=== PATIENT | male | born 1950 | race Caucasian/White ===

== ENCOUNTER 2016-07-03 13:16 | Inpatient (IN) | payer BC, OTHER ==
[2016-07-03] MEDS ORDERED: Sodium Chloride 0.9% 2.5 ML Syringe FLUSH PRN ×2 (13:25→14:05)
--- NOTE | 2016-07-03 13:37 | EDM.PDOC ---
ED HPI SEIZURE COMPLAINT - General Stated Complaint: UNK Time Seen by Provider: 07/03/16 13:20 Source of Information: Reports: EMS History Limitations: Reports: No limitations - History of Present Illness INITIAL COMMENTS - FREE TEXT/NARRATIVE: History of present illness: [] Patient worked in the [employer] all day 5 days ago, woke up the next morning dizzy and lightheaded. The following day he started having dark bloody stools and has had 2 syncopal episodes in the last 24 hours. Last night he was found on the floor by his and 2 in the morning, unknown how long he can down. Patient has a history of taking high doses of ibuprofen daily for the last 2 months and stopped recently. Review of systems: As per history of present illness and below otherwise all systems reviewed and negative. Past medical history: As per history of present illness and as reviewed below otherwise noncontributory. Surgical history: As per history of present illness and as reviewed below otherwise noncontributory. Social history: No reported history of drug or alcohol abuse. Family history: As per history of present illness and as reviewed below otherwise noncontributory. Physical exam: General: Well developed, well nourished in NAD HEENT: Atraumatic, normocephalic, pupils reactive, negative for conjunctival pallor or scleral icterus, mucous membranes moist, throat clear, neck supple, nontender, trachea midline. Lungs: Clear to auscultation, breath sounds equal bilaterally, chest nontender. Heart: S1S2, regular, negative for clicks, rubs, or JVD. Abdomen: Soft, nondistended, nontender. Negative for masses or hepatosplenomegaly. Negative for costovertebral tenderness. Pelvis: Stable nontender. Genitourinary: Deferred. Rectal: Black guaiac positive stool Extremities: Atraumatic, negative for cords or calf pain. Neurovascular unremarkable. Neuro: Awake, alert, oriented. Cranial nerves II through XII unremarkable. Cerebellum unremarkable. Motor and sensory unremarkable throughout. Exam nonfocal. Diagnostics: [] CBC, chemistry, troponin, chest x-ray- shows no free air Therapeutics: [] IV hydration, transfusion packed RBCs, Protonix bolus and drip Impression: [] GI bleed Plan: [] Admit to ICU, transfuse packed RBCs, admit to hospitalist, Dr. Sylvester Stoll will consult on him for endoscopy. Definitive disposition and diagnosis as appropriate pending reevaluation and review of above. - Related Data Allergies/ADRs: Allergies Allergy/AdvReac Type Severity Reaction Status Date / Time No Known Allergies Allergy Verified 07/03/16 13:37 Home Meds: Home Meds Terazosin HCl [Terazosin] 5 mg PO BEDTIME 08/23/14 [History] Losartan [Cozaar] 25 mg PO DAILY 07/03/16 [History] Unknown Antidepressant 1 tab PO DAILY 07/03/16 [History] Social & Family History - Tobacco Use Smoking Status *Q: Former Smoker - Alcohol Use Days Per Week of Alcohol Use: 0 - Recreational Drug Use Recreational Drug Use: No Drug Use in Last 12 Months: No ED ROS GENERAL - Review of Systems Review Of Systems: See Below (See history of present illness) - Physical Exam Exam: See Below (See history of present illness) Course - Vital Signs Last Recorded V/S: Last Vital Signs Temp 37.1 C 07/03/16 13:16 Pulse 108 H 07/03/16 14:14 Resp 16 07/03/16 14:14 BP 105/56 L 07/03/16 14:14 Pulse Ox 97 07/03/16 14:14 - Orders/Labs/Meds Orders: Active Orders 24 hr Category Date Time Status Chest 1V Frontal [CR] Stat Exams 07/03/16 13:26 Taken CBC WITH AUTO DIFF [HEME] Stat Lab 07/03/16 13:30 Results RED BLOOD CELLS LP [BBK] Stat Lab 07/03/16 13:30 Received TYPE AND SCREEN [BBK] Stat Lab 07/03/16 13:30 Received UA W/MICROSCOPIC [URIN] Stat Lab 07/03/16 13:25 Uncollected Pantoprazole [Protonix IV] 80 mg Med 07/03/16 14:15 Active Sodium Chloride 0.9% [Normal Saline] 100 ml IV Q10H Sodium Chloride 0.9% [Normal Saline] 1,000 ml Med 07/03/16 14:04 Active IV .Bolus Sodium Chloride 0.9% [Saline Flush] Med 07/03/16 13:25 Active 10 ml FLUSH ASDIRECTED PRN Sodium Chloride 0.9% [Saline Flush] Med 07/03/16 14:05 Active 10 ml FLUSH ASDIRECTED PRN Sodium Chloride 0.9% [Saline Flush] Med 07/03/16 13:25 Active 2.5 ml FLUSH ASDIRECTED PRN Sodium Chloride 0.9% [Saline Flush] Med 07/03/16 14:05 Active 2.5 ml FLUSH ASDIRECTED PRN Peripheral IV Insertion Adult [OM.PC] Stat Oth 07/03/16 13:25 Ordered Peripheral IV Insertion Adult [OM.PC] Stat Ot 07/03/16 14:05 Ordered Medication Orders Pantoprazole Sodium 80 mg/ (Sodium Chloride) 100 mls @ 10 mls/hr IV Q10H DILLAN Last Admin: 07/03/16 14:12 Dose: 10 mls/hr Sodium Chloride (Normal Saline) 1,000 mls @ 999 mls/hr IV .Bolus ONE Stop: 07/03/16 15:04 Last Admin: 07/03/16 14:13 Dose: 999 mls/hr Sodium Chloride (Saline Flush) 10 ml FLUSH ASDIRECTED PRN PRN Reason: Keep Vein Open Last Admin: 07/03/16 14:14 Dose: 10 ml Admin: 07/03/16 14:02 Dose: 10 ml Sodium Chloride (Saline Flush) 2.5 ml FLUSH ASDIRECTED PRN PRN Reason: Keep Vein Open Last Admin: 07/03/16 14:02 Dose: 2.5 ml Sodium Chloride (Saline Flush) 10 ml FLUSH ASDIRECTED PRN PRN Reason: Keep Vein Open Sodium Chloride (Saline Flush) 2.5 ml FLUSH ASDIRECTED PRN PRN Reason: Keep Vein Open Last Admin: 07/03/16 14:14 Dose: 2.5 ml Labs: Laboratory Tests 07/03/16 07/03/16 07/03/16 Range/Units 13:30 13:30 13:30 WBC 31.60 H (4.0-11.0) K/uL RBC 1.30 L (4.50-5.90) M/uL Hgb 3.8 L* (13.0-17.0) g/dL Hct 12.0 L (38.0-50.0) % MCV 92.3 (80.0-98.0) fL MCH 29.2 (27.0-32.0) pg MCHC 31.7 (31.0-37.0) g/dL RDW Std Deviation 45.4 (28.0-62.0) fl RDW Coeff of Emily 17 H (11.0-15.0) % Plt Count 238 (150-400) K/uL MPV 8.80 (7.40-12.00) fL Neut % (Auto) [employer] Lymph % (Auto) [employer]ER [place] % (Auto) [employer] TE[employer]ER Eos % (Auto) [employer]ATOR TE[employer]ER Baso % (Auto) [employer] TE[employer]ER Neut # [employer] TE[employer]ER Lymph # [employer]ATOR TE[employer]ER [place] # FL[employer]ULATOR TEACHER Eos # FLIGHT SIMULATOR TEACHER Baso # FL[employer]ULATOR TEACHER Add Manual Diff YES Nucleated RBC % 6.6 /100WBC Nucleated RBCs # 1 K/uL INR (0.86-1.11) APTT (18.6-31.3) SEC Sodium 137 (136-146) mmol/L Potassium 4.0 (3.5-5.1) mmol/L Chloride 106 (98-110) mmol/L Carbon Dioxide 20 L (21-31) mmol/L BUN 47 H (6.0-23.0) mg/dL Creatinine 1.0 (0.6-1.5) mg/dL Est Cr Clr Drug Dosing TNP Estimated GFR (MDRD) > 60.0 ml/min Glucose 203 H (60-110) mg/dL Calcium 8.2 L (8.8-10.8) mg/dL Total Bilirubin 0.2 (0.1-1.5) mg/dL AST 9 (5-40) IU/L ALT 9 (8-54) IU/L Alkaline Phosphatase 32 L (40-150) Troponin I (0.0-0.29) NG/ML Total Protein 4.5 L (6.0-8.0) g/dL Albumin 2.8 L (3.4-4.8) g/dL Globulin 1.7 L (2.0-3.5) g/dL Albumin/Globulin Ratio 1.7 (1.3-2.8) Lipase 39 (7-80) U/L Blood Type O POSITIVE Crossmatch See Detail 07/03/16 07/03/16 Range/Units 13:30 13:30 WBC (4.0-11.0) K/uL RBC (4.50-5.90) M/uL Hgb (13.0-17.0) g/dL Hct (38.0-50.0) % MCV (80.0-98.0) fL MCH (27.0-32.0) pg MCHC (31.0-37.0) g/dL RDW Std Deviation (28.0-62.0) fl RDW Coeff of Emily (11.0-15.0) % Plt Count (150-400) K/uL MPV (7.40-12.00) fL Neut % (Auto) Lymph % (Auto) [place] % (Auto) Eos % (Auto) Baso % (Auto) Neut # Lymph # [place] # Eos # Baso # Add Manual Diff Nucleated RBC % /100WBC Nucleated RBCs # K/uL INR 1.05 (0.86-1.11) APTT 19.8 (18.6-31.3) SEC Sodium (136-146) mmol/L Potassium (3.5-5.1) mmol/L Chloride (98-110) mmol/L Carbon Dioxide (21-31) mmol/L BUN (6.0-23.0) mg/dL Creatinine (0.6-1.5) mg/dL Est Cr Clr Drug Dosing Estimated GFR (MDRD) ml/min Glucose (60-110) mg/dL Calcium (8.8-10.8) mg/dL Total Bilirubin (0.1-1.5) mg/dL AST (5-40) IU/L ALT (8-54) IU/L Alkaline Phosphatase (40-150) Troponin I < 0.10 (0.0-0.29) NG/ML Total Protein (6.0-8.0) g/dL Albumin (3.4-4.8) g/dL Globulin (2.0-3.5) g/dL Albumin/Globulin Ratio (1.3-2.8) Lipase (7-80) U/L Blood Type Crossmatch Meds: Medications Generic Name Dose Route Start Last Admin Trade Name Freq PRN Reason Stop Dose Admin Pantoprazole Sodium 80 mg/ 100 mls @ 10 mls/hr 07/03/16 14:15 07/03/16 14:12 Sodium Chloride IV 10 mls/hr Q10H DILLAN Administration Sodium Chloride 1,000 mls @ 999 mls/hr 07/03/16 14:04 07/03/16 14:13 Normal Saline IV 07/03/16 15:04 999 mls/hr .Bolus ONE Administration Sodium Chloride 10 ml 07/03/16 13:25 07/03/16 14:14 Saline Flush FLUSH 10 ml ASDIRECTED PRN Administration Keep Vein Open Sodium Chloride 2.5 ml 07/03/16 13:25 07/03/16 14:02 Saline Flush FLUSH 2.5 ml ASDIRECTED PRN Administration Keep Vein Open Sodium Chloride 10 ml 07/03/16 14:05 Saline Flush FLUSH ASDIRECTED PRN Keep Vein Open Sodium Chloride 2.5 ml 07/03/16 14:05 07/03/16 14:14 Saline Flush FLUSH 2.5 ml ASDIRECTED PRN Administration Keep Vein Open Discontinued Medications Generic Name Dose Route Start Last Admin Trade Name Freq PRN Reason Stop Dose Admin Pantoprazole Sodium 80 mg/ 100 mls @ 10 mls/hr 07/03/16 14:00 Sodium Chloride IV .Continuous DILLAN Pantoprazole Sodium 80 mg 07/03/16 13:55 07/03/16 14:00 Protonix Iv IVPUSH 07/03/16 13:56 80 mg .BOLUS ONE Administration Departure - Departure Time of Disposition: 14:19 Disposition: Admitted As Inpatient 67 Condition: fair Clinical Impression: GI bleed due to NSAIDs Referrals: PCP,None [Primary Care Provider] - - My Orders Last 24 Hours: My Active Orders 07/03/16 13:25 UA W/MICROSCOPIC [URIN] Stat Sodium Chloride 0.9% [Saline Flush] 10 ml FLUSH ASDIRECTED PRN Sodium Chloride 0.9% [Saline Flush] 2.5 ml FLUSH ASDIRECTED PRN Peripheral IV Insertion Adult [OM.PC] Stat 07/03/16 13:26 Chest 1V Frontal [CR] Stat 07/03/16 13:30 CBC WITH AUTO DIFF [HEME] Stat RED BLOOD CELLS LP [BBK] Stat TYPE AND SCREEN [BBK] Stat 07/03/16 14:04 Sodium Chloride 0.9% [Normal Saline] 1,000 ml IV .Bolus 07/03/16 14:05 Sodium Chloride 0.9% [Saline Flush] 10 ml FLUSH ASDIRECTED PRN Sodium Chloride 0.9% [Saline Flush] 2.5 ml FLUSH ASDIRECTED PRN Peripheral IV Insertion Adult [OM.PC] Stat 07/03/16 14:15 Pantoprazole [Protonix IV] 80 mg Sodium Chloride 0.9% [Normal Saline] 100 ml IV Q10H - Assessment/Plan Last 24 Hours: My Active Orders 07/03/16 13:25 UA W/MICROSCOPIC [URIN] Stat Sodium Chloride 0.9% [Saline Flush] 10 ml FLUSH ASDIRECTED PRN Sodium Chloride 0.9% [Saline Flush] 2.5 ml FLUSH ASDIRECTED PRN Peripheral IV Insertion Adult [OM.PC] Stat 07/03/16 13:26 Chest 1V Frontal [CR] Stat 07/03/16 13:30 CBC WITH AUTO DIFF [HEME] Stat RED BLOOD CELLS LP [BBK] Stat TYPE AND SCREEN [BBK] Stat 07/03/16 14:04 Sodium Chloride 0.9% [Normal Saline] 1,000 ml IV .Bolus 07/03/16 14:05 Sodium Chloride 0.9% [Saline Flush] 10 ml FLUSH ASDIRECTED PRN Sodium Chloride 0.9% [Saline Flush] 2.5 ml FLUSH ASDIRECTED PRN Peripheral IV Insertion Adult [OM.PC] Stat 07/03/16 14:15 Pantoprazole [Protonix IV] 80 mg Sodium Chloride 0.9% [Normal Saline] 100 ml IV Q10H
[2016-07-03] MEDS ORDERED: Pantoprazole 40 MG Vial IVPUSH ONE (13:55)
[2016-07-03] MEDS ORDERED: Pantoprazole 80 MG in Sodium Chloride 0.9% 100 ML IV SCH (14:00)
[2016-07-03] MEDS: Sodium Chloride 0.9% 10 ML Syringe FLUSH PRN ×2 (14:02→14:14)
[2016-07-03] MEDS ORDERED: Sodium Chloride 0.9% 1,000 ML IV ONE (14:04)
[2016-07-03] MEDS ORDERED: Sodium Chloride 0.9% 10 ML Syringe FLUSH PRN (14:05)
[2016-07-03 14:06] LABS: CHLORIDE,CL 106 mmol/L (98-110); SODIUM,NA 137 mmol/L (136-146)
[2016-07-03] MEDS: Pantoprazole 80 MG in Sodium Chloride 0.9% 100 ML IV SCH (14:12)
[2016-07-03] MEDS ORDERED: Ondansetron 4 MG/2 ML SDV IVPUSH PRN (14:43)
--- NOTE | 2016-07-03 14:56 | PCM.HP ---
H&P History of Present Illness - History of Present Illness Initial Comments - Free Text/Narative: 65 yo male with pmh of hypertenison, and BPH who presents with several day history of dizziness and generalized weakness. He reports that last night he had difficulty getting up after sitting on the toliet. He reports a four day history of dark stools but denies any diarrhea, nausea, or abdominal pain. He had been taking 1600mg of ibuprofen a day for his shoulder and hip arthritis. He denies any cough, fevers, or chills. Dark stool was noted in the ED which was heme positive. - Related Data Allergies/Adverse Reactions: Allergies Allergy/AdvReac Type Severity Reaction Status Date / Time No Known Allergies Allergy Verified 07/03/16 13:37 Home Medications: Home Meds Terazosin HCl [Terazosin] 5 mg PO BEDTIME 08/23/14 [History] Losartan [Cozaar] 25 mg PO DAILY 07/03/16 [History] Unknown Antidepressant 1 tab PO DAILY 07/03/16 [History] Past Medical History Cardiovascular History: Reports: Hypertension Genitourinary History: Reports: Renal calculus, Other (see below) Other Genitourinary History: Pt reports "increased frequency of urination" Musculoskeletal History: Reports: Osteoarthritis - Past Surgical History Musculoskeletal Surgical History: Reports: Other (see below) Other Musculoskeletal Surgeries/Procedures:: Knee and Back Surgery Social & Family History - Family History Family Medical History: Noncontributory - Tobacco Use Smoking Status *Q: Former Smoker - Alcohol Use Days Per Week of Alcohol Use: 0 - Recreational Drug Use Recreational Drug Use: No Drug Use in Last 12 Months: No H&P Review of Systems - Review of Systems: Review Of Systems: See Below General: Reports: weakness, fatigue HEENT: Reports: no symptoms Pulmonary: Reports: no symptoms Cardiovascular: Reports: no symptoms Gastrointestinal: Reports: Black stool. Denies: Abdominal pain, Bloody stool, Constipation, Diarrhea, Difficulty swallowing, Distension, Hematemesis, Hematochezia, Nausea, Vomiting Genitourinary: Reports: no symptoms Musculoskeletal: Reports: no symptoms Skin: Reports: no symptoms Psychiatric: Reports: no symptoms Neurological: Reports: no symptoms Hematologic/Lymphatic: Reports: no symptoms Immunologic: Reports: no symptoms Exam - Exam Exam: See Below - Vital Signs Vital Signs: Last Vital Signs Temp 37.1 C 07/03/16 13:16 Pulse 90 07/03/16 14:39 Resp 16 07/03/16 14:39 BP 116/70 07/03/16 14:39 Pulse Ox 98 07/03/16 14:39 Weight: 96.162 kg - Exam General: alert, oriented, other (appears pale) Neck: supple, trachea midline Lungs: Clear to auscultation, Normal respiratory effort Cardiovascular: regular rate, regular rhythm Abdomen: normal bowel sounds, soft Extremities: 3, normal inspection, 10 Skin: warm, dry, intact - Patient Data Result Diagrams: 07/04/16 05:50 07/04/16 05:50 *Q Meaningful Use (ADM) - VTE *Q VTE Criteria *Q: - Stroke *Q Stroke Criteria *Q: - AMI *Q AMI Criteria *Q: Problem List Initiated/Reviewed/Updated: Yes Orders Last 24hrs: Active Orders 24 hr Category Date Time Status CBC W/O DIFF,HEMOGRAM [HEME] Timed Lab 07/03/16 15:00 Ordered CBC WITH AUTO DIFF [HEME] Stat Lab 07/03/16 14:36 Ordered Transfuse PRBC [Transfuse Red Blood Cells] [COMM] Oth 07/03/16 14:34 Ordered Routine Medication Orders Pantoprazole Sodium 80 mg/ (Sodium Chloride) 100 mls @ 10 mls/hr IV Q10H DILLAN Last Admin: 07/03/16 14:12 Dose: 10 mls/hr Sodium Chloride (Normal Saline) 1,000 mls @ 999 mls/hr IV .Bolus ONE Stop: 07/03/16 15:04 Last Admin: 07/03/16 14:13 Dose: 999 mls/hr Sodium Chloride (Saline Flush) 10 ml FLUSH ASDIRECTED PRN PRN Reason: Keep Vein Open Last Admin: 07/03/16 14:14 Dose: 10 ml Admin: 07/03/16 14:02 Dose: 10 ml Sodium Chloride (Saline Flush) 2.5 ml FLUSH ASDIRECTED PRN PRN Reason: Keep Vein Open Last Admin: 07/03/16 14:02 Dose: 2.5 ml Sodium Chloride (Saline Flush) 10 ml FLUSH ASDIRECTED PRN PRN Reason: Keep Vein Open Sodium Chloride (Saline Flush) 2.5 ml FLUSH ASDIRECTED PRN PRN Reason: Keep Vein Open Last Admin: 07/03/16 14:14 Dose: 2.5 ml Assessment/Plan Comment:: 65 yo male admitted for GI bleed with acute blood loss anemia. We will transfer to ICU due to his severe anemia but he is hemodynamiclly stable and does not appear septic. Will transfuse pRBC and treat with IV protonix. Dr. Stoll is consulted and plans on EGD.
[2016-07-03] MEDS: Octreotide 500 MCG in Sodium Chloride 0.9% 495 ML IV SCH (17:56)
--- NOTE | 2016-07-03 21:25 | CONS ---
DATE OF CONSULTATION: 07/03/2016 DATE OF : 1950 PRIMARY CARE PHYSICIAN: None PCP Consult was called. The patient was seen shortly after consult and question is severe anemia. HISTORY OF PRESENT ILLNESS: The patient is a 65-year-old gentleman, very nice patient of Dr. Moses, and is taking a lot of Motrin up to 1600 mg a day for arthritis. Does not feel good for about 4-day history of lethargy and weakness and subsequent check in the emergency room and initial workup blood draw revealed the patient's H and H of 3 and 12. Surgery was then consulted. The patient denied bright red blood per rectum. Denied hematemesis. Denied any abdominal pain. The patient admits to have black tarry stools for over 4 days and also 2 times syncope episode at home. PAST MEDICAL HISTORY: Significant for arthritis. Denied diabetes, MS, CVA. The patient does have hypertension. PAST SURGICAL HISTORY: Hernia repair x2 and also colonoscopy x2, both over 15 years ago. FAMILY HISTORY: Noncontributory. REVIEW OF SYSTEMS: Same as history of present illness. PHYSICAL EXAMINATION: GENERAL: A very pleasant, nice gentleman, except little bit pale, slightly older than stated age, in no acute distress. HEENT: Normocephalic and atraumatic. Sclerae anicteric. LUNGS: Clear to auscultation. HEART: Regular rate and rhythm. ABDOMEN: Soft. Nondistended. No pulsating, tender midline abdominal structure. Absolutely nontender. Bowel sounds in all 4 quadrants. VITAL SIGNS: Blood pressure 100/60 and heart rate 110. BLOOD WORK: H and H are 3 and 12. IMPRESSION: Large amount of NSAID, with syncope episode and with anemic the patient probably is losing blood somewhere. We will start GI bleeding protocol, put into large- bore IV access, transfuse to above 10 and hold all anticoagulation and NSAID. Keep hydration, aggressive resuscitation, and monitor in and out. We will follow the patient with you. The patient will probably benefit from endoscopy study in about 1 to 2 days, so please hold off regular diet, it is okay to give clear liquid diet if the patient so desire and also Protonix drip as you are doing. As always, thank you for the kind referral. LYNNE / MANPREET /[id number]
[2016-07-03] MEDS ORDERED: Sodium Chloride 0.9% 1,000 ML IV SCH (22:00)
[2016-07-04] MEDS: Pantoprazole 80 MG in Sodium Chloride 0.9% 100 ML IV SCH ×3 (00:01→21:41)
[2016-07-04] MEDS: Octreotide 500 MCG in Sodium Chloride 0.9% 495 ML IV SCH (03:12)
[2016-07-04 07:12] LABS: CHLORIDE,CL 110 mmol/L (98-110); SODIUM,NA 141 mmol/L (136-146)
--- NOTE | 2016-07-04 07:49 | PCM.PN ---
- Review of Systems Systems Review Comment:: reports dizziness has improved, no bloody bowel movements, patient denies history of alcohol abuse. - Patient Data Vitals - most recent: Last Vital Signs Temp 37 C 07/04/16 04:00 Pulse 102 H 07/03/16 19:00 Resp 20 07/04/16 07:00 BP 114/68 07/04/16 07:00 Pulse Ox 95 07/04/16 07:00 Weight - most recent: 98.1 kg I&O - last 24 hours: Intake & Output 07/03/16 07/04/16 07/04/16 21:59 06:59 14:59 Intake Total Output Total Balance Lab Results last 24 hrs: Laboratory Results - last 24 hr 07/03/16 07/03/16 07/03/16 Range/Units 14:35 14:56 16:46 WBC 31.38 H (4.0-11.0) K/uL RBC 1.25 L (4.50-5.90) M/uL Hgb 3.7 L* (13.0-17.0) g/dL Hct 11.5 L (38.0-50.0) % MCV 92.0 (80.0-98.0) fL MCH 29.6 (27.0-32.0) pg MCHC 32.2 (31.0-37.0) g/dL RDW Std Deviation 44.8 (28.0-62.0) fl RDW Coeff of Emily 17 H (11.0-15.0) % Plt Count 231 (150-400) K/uL MPV 8.50 (7.40-12.00) fL Neut % (Auto) (48.0-80.0) % Lymph % (Auto) (16.0-40.0) % [place] % (Auto) (0.0-15.0) % Eos % (Auto) (0.0-7.0) % Baso % (Auto) (0.0-1.5) % Neut # (1.4-5.7) K/uL Lymph # (0.6-2.4) K/uL [place] # (0.0-0.8) K/uL Eos # (0.0-0.7) K/uL Baso # (0.0-0.1) K/uL Add Manual Diff YES Neutrophils % (Manual) 80 (48.0-80.0) % Band Neutrophils % 6 % Lymphocytes % (Manual) 12 L (16.0-40.0) % Monocytes % (Manual) 2 (0.0-15.0) % Nucleated RBC % 6.9 /100WBC Absolute Seg Neuts 25.1 Band Neutrophils # 1.9 Lymphocytes # (Manual) 3.8 Monocytes # (Manual) 0.6 Nucleated RBCs 2 % Nucleated RBCs # 1 K/uL Lactate 2.3 H (0.20-2.00) mmol/L Sodium (136-146) mmol/L Potassium (3.5-5.1) mmol/L Chloride (98-110) mmol/L Carbon Dioxide (21-31) mmol/L BUN (6.0-23.0) mg/dL Creatinine (0.6-1.5) mg/dL Est Cr Clr Drug Dosing mL/min Estimated GFR (MDRD) ml/min Glucose (60-110) mg/dL Calcium (8.8-10.8) mg/dL Urine Color YELLOW Urine Appearance CLEAR Urine pH 5.5 (5.0-8.0) Ur Specific [place] 1.015 (1.001-1.035) Urine Protein NEGATIVE (NEGATIVE) mg/dL Urine Glucose (UA) NEGATIVE (NEGATIVE) mg/dL Urine Ketones NEGATIVE (NEGATIVE) mg/dL Urine Occult Blood NEGATIVE (NEGATIVE) Urine Nitrite NEGATIVE (NEGATIVE) Urine Bilirubin NEGATIVE (NEGATIVE) Urine Urobilinogen 0.2 (<2.0) EU/dL Ur Leukocyte Esterase NEGATIVE (NEGATIVE) Urine RBC 0-1 (0-2/HPF) Urine WBC 0-1 (0-5/HPF) Ur Epithelial Cells RARE (NONE-FEW) Urine Bacteria RARE (NEGATIVE) 07/03/16 07/03/16 07/04/16 Range/Units 22:17 22:17 05:50 WBC 24.82 H (4.0-11.0) K/uL RBC 2.56 L (4.50-5.90) M/uL Hgb 7.5 L (13.0-17.0) g/dL Hct 22.6 L (38.0-50.0) % MCV 88.3 (80.0-98.0) fL MCH 29.3 (27.0-32.0) pg MCHC 33.2 (31.0-37.0) g/dL RDW Std Deviation 48.2 (28.0-62.0) fl RDW Coeff of Emily 16 H (11.0-15.0) % Plt Count 177 (150-400) K/uL MPV 8.50 (7.40-12.00) fL Neut % (Auto) (48.0-80.0) % Lymph % (Auto) (16.0-40.0) % [place] % (Auto) (0.0-15.0) % Eos % (Auto) (0.0-7.0) % Baso % (Auto) (0.0-1.5) % Neut # (1.4-5.7) K/uL Lymph # (0.6-2.4) K/uL [place] # (0.0-0.8) K/uL Eos # (0.0-0.7) K/uL Baso # (0.0-0.1) K/uL Add Manual Diff Neutrophils % (Manual) (48.0-80.0) % Band Neutrophils % % Lymphocytes % (Manual) (16.0-40.0) % Monocytes % (Manual) (0.0-15.0) % Nucleated RBC % 6.9 /100WBC Absolute Seg Neuts Band Neutrophils # Lymphocytes # (Manual) Monocytes # (Manual) Nucleated RBCs % Nucleated RBCs # 1 K/uL Lactate 1.0 (0.20-2.00) mmol/L Sodium 141 (136-146) mmol/L Potassium 4.0 (3.5-5.1) mmol/L Chloride 110 (98-110) mmol/L Carbon Dioxide 24 (21-31) mmol/L BUN 30 H (6.0-23.0) mg/dL Creatinine 0.9 (0.6-1.5) mg/dL Est Cr Clr Drug Dosing 96.45 mL/min Estimated GFR (MDRD) > 60.0 ml/min Glucose 110 (60-110) mg/dL Calcium 7.3 L (8.8-10.8) mg/dL Urine Color Urine Appearance Urine pH (5.0-8.0) Ur Specific [place] (1.001-1.035) Urine Protein (NEGATIVE) mg/dL Urine Glucose (UA) (NEGATIVE) mg/dL Urine Ketones (NEGATIVE) mg/dL Urine Occult Blood (NEGATIVE) Urine Nitrite (NEGATIVE) Urine Bilirubin (NEGATIVE) Urine Urobilinogen (<2.0) EU/dL Ur Leukocyte Esterase (NEGATIVE) Urine RBC (0-2/HPF) Urine WBC (0-5/HPF) Ur Epithelial Cells (NONE-FEW) Urine Bacteria (NEGATIVE) 07/04/16 Range/Units 05:50 WBC 20.18 H (4.0-11.0) K/uL RBC 2.82 L (4.50-5.90) M/uL Hgb 8.3 L (13.0-17.0) g/dL Hct 24.5 L (38.0-50.0) % MCV 86.9 (80.0-98.0) fL MCH 29.4 (27.0-32.0) pg MCHC 33.9 (31.0-37.0) g/dL RDW Std Deviation 47.6 (28.0-62.0) fl RDW Coeff of Emily 16 H (11.0-15.0) % Plt Count 175 (150-400) K/uL MPV 8.70 (7.40-12.00) fL Neut % (Auto) 77.7 (48.0-80.0) % Lymph % (Auto) 14.5 L (16.0-40.0) % [place] % (Auto) 7.3 (0.0-15.0) % Eos % (Auto) 0.3 (0.0-7.0) % Baso % (Auto) 0.2 (0.0-1.5) % Neut # 15.7 H (1.4-5.7) K/uL Lymph # 2.9 H (0.6-2.4) K/uL [place] # 1.5 H (0.0-0.8) K/uL Eos # 0.1 (0.0-0.7) K/uL Baso # 0.1 (0.0-0.1) K/uL Add Manual Diff Neutrophils % (Manual) (48.0-80.0) % Band Neutrophils % % Lymphocytes % (Manual) (16.0-40.0) % Monocytes % (Manual) (0.0-15.0) % Nucleated RBC % 5.8 /100WBC Absolute Seg Neuts Band Neutrophils # Lymphocytes # (Manual) Monocytes # (Manual) Nucleated RBCs % Nucleated RBCs # 1 K/uL Lactate (0.20-2.00) mmol/L Sodium (136-146) mmol/L Potassium (3.5-5.1) mmol/L Chloride (98-110) mmol/L Carbon Dioxide (21-31) mmol/L BUN (6.0-23.0) mg/dL Creatinine (0.6-1.5) mg/dL Est Cr Clr Drug Dosing mL/min Estimated GFR (MDRD) ml/min Glucose (60-110) mg/dL Calcium (8.8-10.8) mg/dL Urine Color Urine Appearance Urine pH (5.0-8.0) Ur Specific [place] (1.001-1.035) Urine Protein (NEGATIVE) mg/dL Urine Glucose (UA) (NEGATIVE) mg/dL Urine Ketones (NEGATIVE) mg/dL Urine Occult Blood (NEGATIVE) Urine Nitrite (NEGATIVE) Urine Bilirubin (NEGATIVE) Urine Urobilinogen (<2.0) EU/dL Ur Leukocyte Esterase (NEGATIVE) Urine RBC (0-2/HPF) Urine WBC (0-5/HPF) Ur Epithelial Cells (NONE-FEW) Urine Bacteria (NEGATIVE) Med Orders - Current: Current Medications Pantoprazole Sodium 80 mg/ (Sodium Chloride) 100 mls @ 10 mls/hr IV Q10H DILLAN Last Admin: 07/04/16 00:01 Dose: 10 mls/hr Octreotide Acetate 500 mcg/ (Sodium Chloride) 500 mls @ 50 mls/hr IV Q10H DILLAN PRN Reason: 50 MCG/HR Last Admin: 07/04/16 03:12 Dose: Not Given Sodium Chloride (Normal Saline) 1,000 mls @ 75 mls/hr IV ASDIRECTED DILLAN Last Infusion: 07/04/16 01:50 Dose: 75 mls/hr Ondansetron HCl (Zofran) 4 mg IVPUSH Q4H PRN PRN Reason: Nausea Sodium Chloride (Saline Flush) 10 ml FLUSH ASDIRECTED PRN PRN Reason: Keep Vein Open Last Admin: 07/03/16 14:14 Dose: 10 ml Sodium Chloride (Saline Flush) 2.5 ml FLUSH ASDIRECTED PRN PRN Reason: Keep Vein Open Last Admin: 07/03/16 14:02 Dose: 2.5 ml Sodium Chloride (Saline Flush) 10 ml FLUSH ASDIRECTED PRN PRN Reason: Keep Vein Open Sodium Chloride (Saline Flush) 2.5 ml FLUSH ASDIRECTED PRN PRN Reason: Keep Vein Open Last Admin: 07/03/16 14:14 Dose: 2.5 ml Discontinued Medications Pantoprazole Sodium 80 mg/ (Sodium Chloride) 100 mls @ 10 mls/hr IV .Continuous DILLAN Sodium Chloride (Normal Saline) 1,000 mls @ 999 mls/hr IV .Bolus ONE Stop: 07/03/16 15:04 Last Admin: 07/03/16 14:13 Dose: 999 mls/hr Pantoprazole Sodium (Protonix Iv) 80 mg IVPUSH .BOLUS ONE Stop: 07/03/16 13:56 Last Admin: 07/03/16 14:00 Dose: 80 mg - Exam General: alert, oriented Lungs: Clear to auscultation, Normal respiratory effort Cardiovascular: regular rate, regular rhythm Abdomen: bowel sounds present, soft, no tenderness, no distension Extremities: no edema - Problem List Review Problem List Initiated/Reviewed/Updated: Yes - My Orders Last 24 Hours: My Active Orders 07/03/16 14:43 Patient Status [ADT] Routine Oxygen Therapy [RC] PRN Up With Assistance [RC] ASDIRECTED Vital Signs [RC] Q1H Ondansetron [Zofran] 4 mg IVPUSH Q4H PRN Resuscitation Status Routine 07/03/16 14:45 Intake and Output [RC] Q12H Sequential Compression Device [OM.PC] Per Unit Routine 07/03/16 14:47 Antiembolic Devices [RC] PER UNIT ROUTINE 07/03/16 22:49 Communication Order [RC] ROUTINE 07/03/16 Breakfast Nothing per Oral Now Diet [DIET] 07/04/16 07:46 RED BLOOD CELLS LP [BBK] Routine TYPE AND SCREEN [BBK] Routine Transfuse Red Blood Cells [COMM] Routine 07/04/16 Lunch Clear Liquid Diet [DIET] 07/05/16 05:11 BASIC METABOLIC PANEL,BMP [CHEM] AM 07/06/16 05:11 BASIC METABOLIC PANEL,BMP [CHEM] AM - Plan Plan:: 65 yo male admitted for GI bleed with acute blood loss anemia. Will continue IV protonix. Dr. Stoll has been consulted and wants Hgb goal of 10. will transfuse another unit of pRBC.
[2016-07-04] MEDS ORDERED: Calcium Gluconate 10% 1 GM/10 ML SDV IV ONE (10:15)
--- NOTE | 2016-07-04 10:53 | PCM.SURGPN ---
- General Info Date of Service: 07/04/16 Functional Status: Reports: pain controlled - Review of Systems General: Reports: no symptoms Gastrointestinal: Reports: No symptoms (one black tarry stool in ED; rec'd 5 pack cells and h/h increased fr 3.7 to 8.3) - Patient Data Vitals - most recent: Last Vital Signs Temp 98.8 F 07/04/16 10:26 Pulse 86 07/04/16 10:26 Resp 15 07/04/16 10:26 BP 105/62 07/04/16 10:26 Pulse Ox 95 07/04/16 09:00 Weight - most recent: 212 lb I&O - last 24 hours: Intake & Output 07/03/16 07/04/16 07/04/16 21:59 06:59 14:59 Intake Total 271 Output Total Balance 271 Lab Results last 24 hrs: Laboratory Results - last 24 hr 07/03/16 07/03/16 07/03/16 Range/Units 14:35 14:56 16:46 WBC 31.38 H (4.0-11.0) K/uL RBC 1.25 L (4.50-5.90) M/uL Hgb 3.7 L* (13.0-17.0) g/dL Hct 11.5 L (38.0-50.0) % MCV 92.0 (80.0-98.0) fL MCH 29.6 (27.0-32.0) pg MCHC 32.2 (31.0-37.0) g/dL RDW Std Deviation 44.8 (28.0-62.0) fl RDW Coeff of Emily 17 H (11.0-15.0) % Plt Count 231 (150-400) K/uL MPV 8.50 (7.40-12.00) fL Neut % (Auto) (48.0-80.0) % Lymph % (Auto) (16.0-40.0) % [place] % (Auto) (0.0-15.0) % Eos % (Auto) (0.0-7.0) % Baso % (Auto) (0.0-1.5) % Neut # (1.4-5.7) K/uL Lymph # (0.6-2.4) K/uL [place] # (0.0-0.8) K/uL Eos # (0.0-0.7) K/uL Baso # (0.0-0.1) K/uL Add Manual Diff YES Neutrophils % (Manual) 80 (48.0-80.0) % Band Neutrophils % 6 % Lymphocytes % (Manual) 12 L (16.0-40.0) % Monocytes % (Manual) 2 (0.0-15.0) % Nucleated RBC % 6.9 /100WBC Absolute Seg Neuts 25.1 Band Neutrophils # 1.9 Lymphocytes # (Manual) 3.8 Monocytes # (Manual) 0.6 Nucleated RBCs 2 % Nucleated RBCs # 1 K/uL Lactate 2.3 H (0.20-2.00) mmol/L Sodium (136-146) mmol/L Potassium (3.5-5.1) mmol/L Chloride (98-110) mmol/L Carbon Dioxide (21-31) mmol/L BUN (6.0-23.0) mg/dL Creatinine (0.6-1.5) mg/dL Est Cr Clr Drug Dosing mL/min Estimated GFR (MDRD) ml/min Glucose (60-110) mg/dL Calcium (8.8-10.8) mg/dL Urine Color YELLOW Urine Appearance CLEAR Urine pH 5.5 (5.0-8.0) Ur Specific [place] 1.015 (1.001-1.035) Urine Protein NEGATIVE (NEGATIVE) mg/dL Urine Glucose (UA) NEGATIVE (NEGATIVE) mg/dL Urine Ketones NEGATIVE (NEGATIVE) mg/dL Urine Occult Blood NEGATIVE (NEGATIVE) Urine Nitrite NEGATIVE (NEGATIVE) Urine Bilirubin NEGATIVE (NEGATIVE) Urine Urobilinogen 0.2 (<2.0) EU/dL Ur Leukocyte Esterase NEGATIVE (NEGATIVE) Urine RBC 0-1 (0-2/HPF) Urine WBC 0-1 (0-5/HPF) Ur Epithelial Cells RARE (NONE-FEW) Urine Bacteria RARE (NEGATIVE) 07/03/16 07/03/16 07/04/16 Range/Units 22: 22: 05:50 WBC 24.82 H (4.0-11.0) K/uL RBC 2.56 L (4.50-5.90) M/uL Hgb 7.5 L (13.0-17.0) g/dL Hct 22.6 L (38.0-50.0) % MCV 88.3 (80.0-98.0) fL MCH 29.3 (27.0-32.0) pg MCHC 33.2 (31.0-37.0) g/dL RDW Std Deviation 48.2 (28.0-62.0) fl RDW Coeff of Emily 16 H (11.0-15.0) % Plt Count 177 (150-400) K/uL MPV 8.50 (7.40-12.00) fL Neut % (Auto) (48.0-80.0) % Lymph % (Auto) (16.0-40.0) % [place] % (Auto) (0.0-15.0) % Eos % (Auto) (0.0-7.0) % Baso % (Auto) (0.0-1.5) % Neut # (1.4-5.7) K/uL Lymph # (0.6-2.4) K/uL [place] # (0.0-0.8) K/uL Eos # (0.0-0.7) K/uL Baso # (0.0-0.1) K/uL Add Manual Diff Neutrophils % (Manual) (48.0-80.0) % Band Neutrophils % % Lymphocytes % (Manual) (16.0-40.0) % Monocytes % (Manual) (0.0-15.0) % Nucleated RBC % 6.9 /100WBC Absolute Seg Neuts Band Neutrophils # Lymphocytes # (Manual) Monocytes # (Manual) Nucleated RBCs % Nucleated RBCs # 1 K/uL Lactate 1.0 (0.20-2.00) mmol/L Sodium 141 (136-146) mmol/L Potassium 4.0 (3.5-5.1) mmol/L Chloride 110 (98-110) mmol/L Carbon Dioxide 24 (21-31) mmol/L BUN 30 H (6.0-23.0) mg/dL Creatinine 0.9 (0.6-1.5) mg/dL Est Cr Clr Drug Dosing 96.45 mL/min Estimated GFR (MDRD) > 60.0 ml/min Glucose 110 (60-110) mg/dL Calcium 7.3 L (8.8-10.8) mg/dL Urine Color Urine Appearance Urine pH (5.0-8.0) Ur Specific [place] (1.001-1.035) Urine Protein (NEGATIVE) mg/dL Urine Glucose (UA) (NEGATIVE) mg/dL Urine Ketones (NEGATIVE) mg/dL Urine Occult Blood (NEGATIVE) Urine Nitrite (NEGATIVE) Urine Bilirubin (NEGATIVE) Urine Urobilinogen (<2.0) EU/dL Ur Leukocyte Esterase (NEGATIVE) Urine RBC (0-2/HPF) Urine WBC (0-5/HPF) Ur Epithelial Cells (NONE-FEW) Urine Bacteria (NEGATIVE) 07/04/16 Range/Units 05:50 WBC 20.18 H (4.0-11.0) K/uL RBC 2.82 L (4.50-5.90) M/uL Hgb 8.3 L (13.0-17.0) g/dL Hct 24.5 L (38.0-50.0) % MCV 86.9 (80.0-98.0) fL MCH 29.4 (27.0-32.0) pg MCHC 33.9 (31.0-37.0) g/dL RDW Std Deviation 47.6 (28.0-62.0) fl RDW Coeff of Emily 16 H (11.0-15.0) % Plt Count 175 (150-400) K/uL MPV 8.70 (7.40-12.00) fL Neut % (Auto) 77.7 (48.0-80.0) % Lymph % (Auto) 14.5 L (16.0-40.0) % [place] % (Auto) 7.3 (0.0-15.0) % Eos % (Auto) 0.3 (0.0-7.0) % Baso % (Auto) 0.2 (0.0-1.5) % Neut # 15.7 H (1.4-5.7) K/uL Lymph # 2.9 H (0.6-2.4) K/uL [place] # 1.5 H (0.0-0.8) K/uL Eos # 0.1 (0.0-0.7) K/uL Baso # 0.1 (0.0-0.1) K/uL Add Manual Diff Neutrophils % (Manual) (48.0-80.0) % Band Neutrophils % % Lymphocytes % (Manual) (16.0-40.0) % Monocytes % (Manual) (0.0-15.0) % Nucleated RBC % 5.8 /100WBC Absolute Seg Neuts Band Neutrophils # Lymphocytes # (Manual) Monocytes # (Manual) Nucleated RBCs % Nucleated RBCs # 1 K/uL Lactate (0.20-2.00) mmol/L Sodium (136-146) mmol/L Potassium (3.5-5.1) mmol/L Chloride (98-110) mmol/L Carbon Dioxide (21-31) mmol/L BUN (6.0-23.0) mg/dL Creatinine (0.6-1.5) mg/dL Est Cr Clr Drug Dosing mL/min Estimated GFR (MDRD) ml/min Glucose (60-110) mg/dL Calcium (8.8-10.8) mg/dL Urine Color Urine Appearance Urine pH (5.0-8.0) Ur Specific [place] (1.001-1.035) Urine Protein (NEGATIVE) mg/dL Urine Glucose (UA) (NEGATIVE) mg/dL Urine Ketones (NEGATIVE) mg/dL Urine Occult Blood (NEGATIVE) Urine Nitrite (NEGATIVE) Urine Bilirubin (NEGATIVE) Urine Urobilinogen (<2.0) EU/dL Ur Leukocyte Esterase (NEGATIVE) Urine RBC (0-2/HPF) Urine WBC (0-5/HPF) Ur Epithelial Cells (NONE-FEW) Urine Bacteria (NEGATIVE) Med Orders - Current: Current Medications Pantoprazole Sodium 80 mg/ (Sodium Chloride) 100 mls @ 10 mls/hr IV Q10H DILLAN Last Admin: 07/04/16 00:01 Dose: 10 mls/hr Octreotide Acetate 500 mcg/ (Sodium Chloride) 500 mls @ 50 mls/hr IV Q10H DILLAN PRN Reason: 50 MCG/HR Last Admin: 07/04/16 03:12 Dose: Not Given Sodium Chloride (Normal Saline) 1,000 mls @ 75 mls/hr IV ASDIRECTED DILLAN Last Infusion: 07/04/16 01:50 Dose: 75 mls/hr Ondansetron HCl (Zofran) 4 mg IVPUSH Q4H PRN PRN Reason: Nausea Sodium Chloride (Saline Flush) 10 ml FLUSH ASDIRECTED PRN PRN Reason: Keep Vein Open Last Admin: 07/03/16 14:14 Dose: 10 ml Sodium Chloride (Saline Flush) 2.5 ml FLUSH ASDIRECTED PRN PRN Reason: Keep Vein Open Last Admin: 07/03/16 14:02 Dose: 2.5 ml Sodium Chloride (Saline Flush) 10 ml FLUSH ASDIRECTED PRN PRN Reason: Keep Vein Open Sodium Chloride (Saline Flush) 2.5 ml FLUSH ASDIRECTED PRN PRN Reason: Keep Vein Open Last Admin: 07/03/16 14:14 Dose: 2.5 ml Discontinued Medications Calcium Gluconate (Calcium Gluconate) 1 gm IV ONETIME ONE Stop: 07/04/16 10:16 Pantoprazole Sodium 80 mg/ (Sodium Chloride) 100 mls @ 10 mls/hr IV .Continuous DILLAN Sodium Chloride (Normal Saline) 1,000 mls @ 999 mls/hr IV .Bolus ONE Stop: 07/03/16 15:04 Last Admin: 07/03/16 14:13 Dose: 999 mls/hr Pantoprazole Sodium (Protonix Iv) 80 mg IVPUSH .BOLUS ONE Stop: 07/03/16 13:56 Last Admin: 07/03/16 14:00 Dose: 80 mg - Exam Neck: supple Lungs: Clear to auscultation Cardiovascular: regular rate Abdomen: soft, no tenderness, no distension - Problem List Review Problem List Initiated/Reviewed/Updated: Yes - My Orders Last 24 Hours: Active Orders 24 hr Category Date Time Status Patient Status [ADT] Routine ADT 07/03/16 14:43 Active Antiembolic Devices [RC] PER UNIT ROUTINE Care 07/03/16 14:47 Active Communication Order [RC] ROUTINE Care 07/03/16 22:49 Active Daily Weight [Height and Weight] [RC] DAILY Care 07/04/16 10:41 Active Intake and Output [RC] Q12H Care 07/03/16 14:45 Active Oxygen Therapy [RC] PRN Care 07/03/16 14:43 Active Up With Assistance [RC] ASDIRECTED Care 07/03/16 14:43 Active Vital Signs [RC] Q1H Care 07/03/16 14:43 Active Clear Liquid Diet [DIET] Diet 07/04/16 Lunch Active BASIC METABOLIC PANEL,BMP [CHEM] AM Lab 07/05/16 05:11 Ordered BASIC METABOLIC PANEL,BMP [CHEM] AM Lab 07/06/16 05:11 Ordered CBC W/O DIFF,HEMOGRAM [HEME] Timed Lab 07/04/16 08:54 Ordered CULTURE BLOOD [BC] Stat Lab 07/03/16 16:46 Received CULTURE BLOOD [BC] Stat Lab 07/03/16 16:52 Received Octreotide [SandoSTATIN] 500 mcg Med 07/03/16 17:00 Active Sodium Chloride 0.9% [Normal Saline] 495 ml IV Q10H Ondansetron [Zofran] Med 07/03/16 14:43 Active 4 mg IVPUSH Q4H PRN Sodium Chloride 0.9% [Normal Saline] 1,000 ml Med 07/03/16 22:00 Active IV ASDIRECTED Blood Culture x2 Reflex Set [OM.PC] Stat Oth 07/03/16 16:23 Ordered Sequential Compression Device [OM.PC] Per Unit Routine Oth 07/03/16 14:45 Ordered Transfuse Red Blood Cells [COMM] Routine Oth 07/04/16 07:46 Ordered Resuscitation Status Routine Resus Stat 07/03/16 14:43 Ordered Medication Orders Pantoprazole Sodium 80 mg/ (Sodium Chloride) 100 mls @ 10 mls/hr IV Q10H DILLAN Last Admin: 07/04/16 00:01 Dose: 10 mls/hr Infusion: 07/04/16 00:01 Dose: 10 mls/hr Admin: 07/03/16 14:12 Dose: 10 mls/hr Octreotide Acetate 500 mcg/ (Sodium Chloride) 500 mls @ 50 mls/hr IV Q10H DILLAN PRN Reason: 50 MCG/HR Last Admin: 07/04/16 03:12 Dose: Admin: 07/03/16 17:56 Dose: Sodium Chloride (Normal Saline) 1,000 mls @ 75 mls/hr IV ASDIRECTED DILLAN Last Infusion: 07/04/16 01:50 Dose: 75 mls/hr Infusion: 07/03/16 23:58 Dose: 0 mls/hr Admin: 07/03/16 22:05 Dose: 75 mls/hr Ondansetron HCl (Zofran) 4 mg IVPUSH Q4H PRN PRN Reason: Nausea Sodium Chloride (Saline Flush) 10 ml FLUSH ASDIRECTED PRN PRN Reason: Keep Vein Open Last Admin: 07/03/16 14:14 Dose: 10 ml Admin: 07/03/16 14:02 Dose: 10 ml Sodium Chloride (Saline Flush) 2.5 ml FLUSH ASDIRECTED PRN PRN Reason: Keep Vein Open Last Admin: 07/03/16 14:02 Dose: 2.5 ml Sodium Chloride (Saline Flush) 10 ml FLUSH ASDIRECTED PRN PRN Reason: Keep Vein Open Sodium Chloride (Saline Flush) 2.5 ml FLUSH ASDIRECTED PRN PRN Reason: Keep Vein Open Last Admin: 07/03/16 14:14 Dose: 2.5 ml - Assessment Assessment (Free Text/Narrative):: gib and getting aggressive resuscitation; receieved 5 PRBC and h/h going appropriately to 8.3, no signs or symptoms of active bleeding; continue to denied any abd pain whatsoever; pt gave more clear details about med use; he was taking 1600 mg advil everyday till 2 wks ago and then stopped because of ran out of meds; so he is off advil X 2 wks; he denied any abd pain in the last 6 mos; he did lose 10 lb in 2 mos though; his appetite is good; with everything considered; he would be benefitial to have egd done after resuscitation X 24 hrs; maybe colonosscopy as outpatient; his last colonoscopy was 15 yrs ago per pt; he never have egd done in the past; there is no endoscopy planned at the present stage; - Plan Plan (Free Text/Narrative):: gib and getting aggressive resuscitation; receieved 5 PRBC and h/h going appropriately to 8.3, no signs or symptoms of active bleeding; continue to denied any abd pain whatsoever; pt gave more clear details about med use; he was taking 1600 mg advil everyday till 2 wks ago and then stopped because of ran out of meds; so he is off advil X 2 wks; he denied any abd pain in the last 6 mos; he did lose 10 lb in 2 mos though; his appetite is good; with everything considered; he would be benefitial to have egd done after resuscitation X 24 hrs; maybe colonosscopy as outpatient; his last colonoscopy was 15 yrs ago per pt; he never have egd done in the past; there is no endoscopy planned at the present stage;
[2016-07-04 22:45] LABS: CHLORIDE,CL 108 mmol/L (98-110); SODIUM,NA 139 mmol/L (136-146)
[2016-07-04] MEDS ORDERED: Magnesium Sulfate/Water 2 GM in Premix Bag 1 BAG IV ONE (23:52)
[2016-07-05] MEDS ORDERED: Potassium Phosphates 3 mMole/ML 15 ML SDV IV ONE
[2016-07-05] MEDS ORDERED: Potassium Phosphates 20 MMOLE in Sodium Chloride 0.9% 500 ML IV ONE (00:15)
[2016-07-05] MEDS ORDERED: Calcium Gluconate 10% 1 GM/10 ML SDV IV ONE (00:35)
[2016-07-05] MEDS ORDERED: NS + KCl 20mEq/L 500 ML IV ONE (00:55)
[2016-07-05] MEDS ORDERED: KCL IV ONE (01:00)
[2016-07-05] MEDS ORDERED: NS IV ONE (01:00)
[2016-07-05] MEDS: Pantoprazole 80 MG in Sodium Chloride 0.9% 100 ML IV SCH ×2 (05:21→15:18)
[2016-07-05 06:50] LABS: CHLORIDE,CL 110 mmol/L (98-110); SODIUM,NA 139 mmol/L (136-146)
[2016-07-05] MEDS ORDERED: Bisacodyl 5 MG Tab PO ONE ×2 (10:32→13:00)
--- NOTE | 2016-07-05 10:33 | PCM.PREANE ---
Preanesthetic Assessment - ANESTHESIA/TRANSFUSION/FAMILY HX Anesthesia/Transfusion History: Prior Anesthesia, Prior Transfusion Family History of Anesthesia Reaction: No Other Intubation History Comment: no known problems - REVIEW OF SYSTEMS Constitutional: Reports: no symptoms [employer]: Reports: no symptoms Respiratory: Reports: no symptoms Cardiovascular: Reports: no symptoms GI: Reports: no symptoms - PHYSICAL ASSESSMENT O2 Sat by Pulse Oximetry: 93 RR: 24 Temp: 36.5 C Vital Signs: Last Vital Signs Temp 36.5 C 07/05/16 07:31 Pulse 86 07/04/16 10:26 Resp 24 H 07/05/16 08:00 BP 133/64 07/05/16 08:00 Pulse Ox 93 L 07/05/16 08:00 Height: 1.88 m Weight: 100.1 kg ASA Class: 3 Mental Status: alert & oriented x3 Dentition: Reports: missing tooth/teeth ROM/Head Extension: full Respiratory Status: lungs clear to auscultation bilaterally Cardiovascular Status: regular rate & rhythm, normal S1, S2, no murmur - LAB Values: Laboratory Last Values WBC 15.85 K/uL (4.0-11.0) H 07/05/16 02:30 RBC 2.87 M/uL (4.50-5.90) L 07/05/16 02:30 Hgb 10.1 g/dL (13.0-17.0) L 07/05/16 08:03 Hct 30.3 % (38.0-50.0) L 07/05/16 08:03 MCV 89.9 fL (80.0-98.0) 07/05/16 02:30 MCH 30.0 pg (27.0-32.0) 07/05/16 02:30 MCHC 33.3 g/dL (31.0-37.0) 07/05/16 02:30 RDW Std Deviation 46.3 fl (28.0-62.0) 07/05/16 02:30 RDW Coeff of Emily 17 % (11.0-15.0) H 07/05/16 02:30 Plt Count 175 K/uL (150-400) 07/05/16 02:30 MPV 8.30 fL (7.40-12.00) 07/05/16 02:30 Neut % (Auto) 79.2 % (48.0-80.0) 07/05/16 02:30 Lymph % (Auto) 12.0 % (16.0-40.0) L 07/05/16 02:30 [place] % (Auto) 7.4 % (0.0-15.0) 07/05/16 02:30 Eos % (Auto) 1.3 % (0.0-7.0) 07/05/16 02:30 Baso % (Auto) 0.1 % (0.0-1.5) 07/05/16 02:30 Neut # 12.6 K/uL (1.4-5.7) H 07/05/16 02:30 Lymph # 1.9 K/uL (0.6-2.4) 07/05/16 02:30 [place] # 1.2 K/uL (0.0-0.8) H 07/05/16 02:30 Eos # 0.2 K/uL (0.0-0.7) 07/05/16 02:30 Baso # 0.0 K/uL (0.0-0.1) 07/05/16 02:30 Add Manual Diff YES 07/03/16 14:56 Neutrophils % (Manual) 80 % (48.0-80.0) 07/03/16 14:56 Band Neutrophils % 6 % 07/03/16 14:56 Lymphocytes % (Manual) 12 % (16.0-40.0) L 07/03/16 14:56 Monocytes % (Manual) 2 % (0.0-15.0) 07/03/16 14:56 Nucleated RBC % 4.7 /100WBC 07/04/16 11:03 Absolute Seg Neuts 25.1 07/03/16 14:56 Band Neutrophils # 1.9 07/03/16 14:56 Lymphocytes # (Manual) 3.8 07/03/16 14:56 Monocytes # (Manual) 0.6 07/03/16 14:56 Nucleated RBCs 2 % 07/03/16 14:56 Nucleated RBCs # 0 K/uL 07/04/16 11:03 INR 1.05 (0.86-1.11) 07/03/16 13:30 APTT 19.8 SEC (18.6-31.3) 07/03/16 13:30 Lactate 1.0 mmol/L (0.20-2.00) 07/03/16 22:17 Sodium 139 mmol/L (136-146) 07/05/16 06:10 Potassium 4.0 mmol/L (3.5-5.1) 07/05/16 06:10 Chloride 110 mmol/L (98-110) 07/05/16 06:10 Carbon Dioxide 23 mmol/L (21-31) 07/05/16 06:10 BUN 15 mg/dL (6.0-23.0) 07/05/16 06:10 Creatinine 0.8 mg/dL (0.6-1.5) 07/05/16 06:10 Est Cr Clr Drug Dosing 108.50 mL/min 07/05/16 06:10 Estimated GFR (MDRD) > 60.0 ml/min 07/05/16 06:10 Glucose 94 mg/dL (60-110) 07/05/16 06:10 Calcium 7.0 mg/dL (8.8-10.8) L 07/05/16 06:10 Phosphorus 3.4 mg/dL (2.4-4.7) 07/05/16 06:10 Magnesium 1.9 mEq/L (1.5-2.3) 07/05/16 06:10 Total Bilirubin 0.2 mg/dL (0.1-1.5) 07/03/16 13:30 AST 9 IU/L (5-40) 07/03/16 13:30 ALT 9 IU/L (8-54) 07/03/16 13:30 Alkaline Phosphatase 32 (40-150) L 07/03/16 13:30 Troponin I < 0.10 NG/ML (0.0-0.29) 07/03/16 13:30 Total Protein 4.5 g/dL (6.0-8.0) L 07/03/16 13:30 Albumin 2.8 g/dL (3.4-4.8) L 07/03/16 13:30 Globulin 1.7 g/dL (2.0-3.5) L 07/03/16 13:30 Albumin/Globulin Ratio 1.7 (1.3-2.8) 07/03/16 13:30 Lipase 39 U/L (7-80) 07/03/16 13:30 Urine Color YELLOW 07/03/16 14:35 Urine Appearance CLEAR 07/03/16 14:35 Urine pH 5.5 (5.0-8.0) 07/03/16 14:35 Ur Specific [place] 1.015 (1.001-1.035) 07/03/16 14:35 Urine Protein NEGATIVE mg/dL (NEGATIVE) 07/03/16 14:35 Urine Glucose (UA) NEGATIVE mg/dL (NEGATIVE) 07/03/16 14:35 Urine Ketones NEGATIVE mg/dL (NEGATIVE) 07/03/16 14:35 Urine Occult Blood NEGATIVE (NEGATIVE) 07/03/16 14:35 Urine Nitrite NEGATIVE (NEGATIVE) 07/03/16 14:35 Urine Bilirubin NEGATIVE (NEGATIVE) 07/03/16 14:35 Urine Urobilinogen 0.2 EU/dL (<2.0) 07/03/16 14:35 Ur Leukocyte Esterase NEGATIVE (NEGATIVE) 07/03/16 14:35 Urine RBC 0-1 (0-2/HPF) 07/03/16 14:35 Urine WBC 0-1 (0-5/HPF) 07/03/16 14:35 Ur Epithelial Cells RARE (NONE-FEW) 07/03/16 14:35 Urine Bacteria RARE (NEGATIVE) 07/03/16 14:35 Blood Type O POSITIVE 07/03/16 13:30 Antibody Screen NEGATIVE 07/03/16 13:30 Crossmatch See Detail 07/03/16 13:30 - ALLERGIES Allergies/Adverse Reactions: Allergies Allergy/AdvReac Type Severity Reaction Status Date / Time No Known Allergies Allergy Verified 07/03/16 13:37 - BLOOD Blood Available: Yes - ANESTHESIA PLAN Anesthesia Type Planned: MAC - ACKNOWLEDGEMENTS Pt an appropriate candidate for the planned anesthesia: Yes Alternatives and risks of anesthesia discussed w pt/guardian: Yes Pt/Guardian understands and agree with anesthesia plan: Yes PreAnesthesia Questionnaire Cardiovascular History: Reports: Hypertension Gastrointestinal History: Reports: GI bleed (Hb of 3.8 on admission, now 9.2 after 6-7 units of pRBCs,) Other Gastrointestinal History: on protonix and octreotide gtts Genitourinary History: Reports: Renal calculus, Other (see below) Other Genitourinary History: Pt reports "increased frequency of urination" Musculoskeletal History: Reports: Osteoarthritis - Past Surgical History Male Surgical History: Reports: Renal Calculus Neurological Surgical History: Reports: Laminectomy, Lumbar spine Musculoskeletal Surgical History: Reports: Arthroscopic knee, Ganglion cyst, Other (see below) Other Musculoskeletal Surgeries/Procedures:: Knee and Back Surgery - SUBSTANCE USE Smoking Status *Q: Former Smoker Days Per Week of Alcohol Use: 0 Recreational Drug Use History: No - HOME MEDS Home Medications: Home Meds Terazosin HCl [Terazosin] 5 mg PO BEDTIME 08/23/14 [History] Losartan [Cozaar] 25 mg PO DAILY 07/03/16 [History] Unknown Antidepressant 1 tab PO DAILY 07/03/16 [History] - CURRENT (IN HOUSE) MEDS Current Meds: Current Medications Pantoprazole Sodium 80 mg/ (Sodium Chloride) 100 mls @ 10 mls/hr IV Q10H DILLAN Last Admin: 07/05/16 05:21 Dose: 10 mls/hr Lactated Ringer's (Ringers, Lactated) 1,000 mls @ 125 mls/hr IV ASDIRECTED DILLAN Ondansetron HCl (Zofran) 4 mg IVPUSH Q4H PRN PRN Reason: Nausea Sodium Chloride (Saline Flush) 10 ml FLUSH ASDIRECTED PRN PRN Reason: Keep Vein Open Last Admin: 07/03/16 14:14 Dose: 10 ml Sodium Chloride (Saline Flush) 2.5 ml FLUSH ASDIRECTED PRN PRN Reason: Keep Vein Open Last Admin: 07/03/16 14:02 Dose: 2.5 ml Sodium Chloride (Saline Flush) 10 ml FLUSH ASDIRECTED PRN PRN Reason: Keep Vein Open Sodium Chloride (Saline Flush) 2.5 ml FLUSH ASDIRECTED PRN PRN Reason: Keep Vein Open Last Admin: 07/03/16 14:14 Dose: 2.5 ml Discontinued Medications Calcium Gluconate (Calcium Gluconate) 1 gm IV ONETIME ONE Stop: 07/04/16 10:16 Last Admin: 07/04/16 10:45 Dose: 1 gm Calcium Gluconate (Calcium Gluconate) 1 gm IV ONETIME ONE Stop: 07/05/16 00:36 Last Admin: 07/05/16 00:54 Dose: 1 gm Pantoprazole Sodium 80 mg/ (Sodium Chloride) 100 mls @ 10 mls/hr IV .Continuous DILLAN Sodium Chloride (Normal Saline) 1,000 mls @ 999 mls/hr IV .Bolus ONE Stop: 07/03/16 15:04 Last Admin: 07/03/16 14:13 Dose: 999 mls/hr Octreotide Acetate 500 mcg/ (Sodium Chloride) 500 mls @ 50 mls/hr IV Q10H DILLAN PRN Reason: 50 MCG/HR Last Admin: 07/04/16 03:12 Dose: Not Given Sodium Chloride (Normal Saline) 1,000 mls @ 75 mls/hr IV ASDIRECTED DILLAN Last Infusion: 07/04/16 01:50 Dose: 75 mls/hr Magnesium Sulfate 2 gm/ Premix 50 mls @ 50 mls/hr IV ONETIME ONE Stop: 07/05/16 00:51 Last Admin: 07/05/16 00:11 Dose: 50 mls/hr Potassium Phosphate 20 mmole/ (Sodium Chloride) 506.6667 mls @ 126.667 mls/hr IV NOW ONE Stop: 07/05/16 04:14 Last Admin: 07/05/16 00:52 Dose: 126.667 mls/hr Potassium Chloride/Sodium Chloride (Normal Saline With 20 Meq Kcl) 500 mls @ 250 mls/hr IV ONETIME ONE Stop: 07/05/16 02:54 Last Admin: 07/05/16 01:22 Dose: 250 mls/hr Pantoprazole Sodium (Protonix Iv) 80 mg IVPUSH .BOLUS ONE Stop: 07/03/16 13:56 Last Admin: 07/03/16 14:00 Dose: 80 mg Potassium Phosphate (Potassium Phosphates) 20 mmole IV ONETIME ONE Stop: 07/05/16 00:01
--- NOTE | 2016-07-05 10:46 | PCM.PN ---
- General Info Date of Service: 07/05/16 - Patient Data Vitals - most recent: Last Vital Signs Temp 36.5 C 07/05/16 10:34 Pulse 86 07/04/16 10:26 Resp 24 H 07/05/16 10:34 BP 133/64 07/05/16 08:00 Pulse Ox 93 L 07/05/16 10:34 Weight - most recent: 100.1 kg I&O - last 24 hours: Intake & Output 07/04/16 07/05/16 07/05/16 22:59 06:59 14:59 Intake Total 2600 1796 Output Total 1200 640 Balance 1400 1156 Lab Results last 24 hrs: Laboratory Results - last 24 hr 07/04/16 07/04/16 07/04/16 Range/Units 11:03 20:00 22:03 WBC 18.56 H (4.0-11.0) K/uL RBC 3.11 L (4.50-5.90) M/uL Hgb 9.2 L 9.4 L (13.0-17.0) g/dL Hct 26.9 L 27.6 L (38.0-50.0) % MCV 86.5 (80.0-98.0) fL MCH 29.6 (27.0-32.0) pg MCHC 34.2 (31.0-37.0) g/dL RDW Std Deviation 47.6 (28.0-62.0) fl RDW Coeff of Emily 17 H (11.0-15.0) % Plt Count 165 (150-400) K/uL MPV 8.60 (7.40-12.00) fL Neut % (Auto) (48.0-80.0) % Lymph % (Auto) (16.0-40.0) % [place] % (Auto) (0.0-15.0) % Eos % (Auto) (0.0-7.0) % Baso % (Auto) (0.0-1.5) % Neut # (1.4-5.7) K/uL Lymph # (0.6-2.4) K/uL [place] # (0.0-0.8) K/uL Eos # (0.0-0.7) K/uL Baso # (0.0-0.1) K/uL Nucleated RBC % 4.7 /100WBC Nucleated RBCs # 0 K/uL Sodium 139 (136-146) mmol/L Potassium 3.5 (3.5-5.1) mmol/L Chloride 108 (98-110) mmol/L Carbon Dioxide 25 (21-31) mmol/L BUN 18 (6.0-23.0) mg/dL Creatinine 0.8 (0.6-1.5) mg/dL Est Cr Clr Drug Dosing 108.50 mL/min Estimated GFR (MDRD) > 60.0 ml/min Glucose 119 H (60-110) mg/dL Calcium 7.2 L (8.8-10.8) mg/dL Phosphorus (2.4-4.7) mg/dL Magnesium 1.3 L (1.5-2.3) mEq/L 07/04/16 07/05/16 07/05/16 Range/Units 22:03 02:30 06:10 WBC 15.85 H (4.0-11.0) K/uL RBC 2.87 L (4.50-5.90) M/uL Hgb 8.6 L (13.0-17.0) g/dL Hct 25.8 L (38.0-50.0) % MCV 89.9 (80.0-98.0) fL MCH 30.0 (27.0-32.0) pg MCHC 33.3 (31.0-37.0) g/dL RDW Std Deviation 46.3 (28.0-62.0) fl RDW Coeff of Emily 17 H (11.0-15.0) % Plt Count 175 (150-400) K/uL MPV 8.30 (7.40-12.00) fL Neut % (Auto) 79.2 (48.0-80.0) % Lymph % (Auto) 12.0 L (16.0-40.0) % [place] % (Auto) 7.4 (0.0-15.0) % Eos % (Auto) 1.3 (0.0-7.0) % Baso % (Auto) 0.1 (0.0-1.5) % Neut # 12.6 H (1.4-5.7) K/uL Lymph # 1.9 (0.6-2.4) K/uL [place] # 1.2 H (0.0-0.8) K/uL Eos # 0.2 (0.0-0.7) K/uL Baso # 0.0 (0.0-0.1) K/uL Nucleated RBC % /100WBC Nucleated RBCs # K/uL Sodium (136-146) mmol/L Potassium (3.5-5.1) mmol/L Chloride (98-110) mmol/L Carbon Dioxide (21-31) mmol/L BUN (6.0-23.0) mg/dL Creatinine (0.6-1.5) mg/dL Est Cr Clr Drug Dosing mL/min Estimated GFR (MDRD) ml/min Glucose (60-110) mg/dL Calcium 7.1 L 7.2 L (8.8-10.8) mg/dL Phosphorus 2.2 L 3.4 (2.4-4.7) mg/dL Magnesium 1.9 (1.5-2.3) mEq/L 07/05/16 07/05/16 Range/Units 06:10 08:03 WBC (4.0-11.0) K/uL RBC (4.50-5.90) M/uL Hgb 10.1 L (13.0-17.0) g/dL Hct 30.3 L (38.0-50.0) % MCV (80.0-98.0) fL MCH (27.0-32.0) pg MCHC (31.0-37.0) g/dL RDW Std Deviation (28.0-62.0) fl RDW Coeff of Emily (11.0-15.0) % Plt Count (150-400) K/uL MPV (7.40-12.00) fL Neut % (Auto) (48.0-80.0) % Lymph % (Auto) (16.0-40.0) % [place] % (Auto) (0.0-15.0) % Eos % (Auto) (0.0-7.0) % Baso % (Auto) (0.0-1.5) % Neut # (1.4-5.7) K/uL Lymph # (0.6-2.4) K/uL [place] # (0.0-0.8) K/uL Eos # (0.0-0.7) K/uL Baso # (0.0-0.1) K/uL Nucleated RBC % /100WBC Nucleated RBCs # K/uL Sodium 139 (136-146) mmol/L Potassium 4.0 (3.5-5.1) mmol/L Chloride 110 (98-110) mmol/L Carbon Dioxide 23 (21-31) mmol/L BUN 15 (6.0-23.0) mg/dL Creatinine 0.8 (0.6-1.5) mg/dL Est Cr Clr Drug Dosing 108.50 mL/min Estimated GFR (MDRD) > 60.0 ml/min Glucose 94 (60-110) mg/dL Calcium 7.0 L (8.8-10.8) mg/dL Phosphorus (2.4-4.7) mg/dL Magnesium (1.5-2.3) mEq/L [place] Results last 24 hrs: Microbiology 07/03/16 16:52 Aerobic Blood Culture - Preliminary Blood - Venous - Lab Draw NO GROWTH AFTER 1 DAY Anaerobic Blood Culture - Preliminary NO GROWTH AFTER 1 DAY 07/03/16 16:46 Aerobic Blood Culture - Preliminary Blood - Venous NO GROWTH AFTER 1 DAY Anaerobic Blood Culture - Preliminary NO GROWTH AFTER 1 DAY Med Orders - Current: Current Medications Bisacodyl (Dulcolax) 20 mg PO ONETIME ONE Stop: 07/05/16 13:01 Pantoprazole Sodium 80 mg/ (Sodium Chloride) 100 mls @ 10 mls/hr IV Q10H DILLAN Last Admin: 07/05/16 05:21 Dose: 10 mls/hr Lactated Ringer's (Ringers, Lactated) 1,000 mls @ 125 mls/hr IV ASDIRECTED DILLAN Ondansetron HCl (Zofran) 4 mg IVPUSH Q4H PRN PRN Reason: Nausea Polyethylene Glycol (Miralax) 119 gm PO ONETIME ONE Stop: 07/05/16 15:01 Polyethylene Glycol (Miralax) 119 gm PO ONETIME ONE Stop: 07/05/16 19:01 Sodium Chloride (Saline Flush) 10 ml FLUSH ASDIRECTED PRN PRN Reason: Keep Vein Open Last Admin: 07/03/16 14:14 Dose: 10 ml Sodium Chloride (Saline Flush) 2.5 ml FLUSH ASDIRECTED PRN PRN Reason: Keep Vein Open Last Admin: 07/03/16 14:02 Dose: 2.5 ml Sodium Chloride (Saline Flush) 10 ml FLUSH ASDIRECTED PRN PRN Reason: Keep Vein Open Sodium Chloride (Saline Flush) 2.5 ml FLUSH ASDIRECTED PRN PRN Reason: Keep Vein Open Last Admin: 07/03/16 14:14 Dose: 2.5 ml Discontinued Medications Bisacodyl (Dulcolax) 20 mg PO ONETIME ONE Stop: 07/05/16 10:33 Last Admin: 07/05/16 10:35 Dose: Not Given Calcium Gluconate (Calcium Gluconate) 1 gm IV ONETIME ONE Stop: 07/04/16 10:16 Last Admin: 07/04/16 10:45 Dose: 1 gm Calcium Gluconate (Calcium Gluconate) 1 gm IV ONETIME ONE Stop: 07/05/16 00:36 Last Admin: 07/05/16 00:54 Dose: 1 gm Pantoprazole Sodium 80 mg/ (Sodium Chloride) 100 mls @ 10 mls/hr IV .Continuous DILLAN Sodium Chloride (Normal Saline) 1,000 mls @ 999 mls/hr IV .Bolus ONE Stop: 07/03/16 15:04 Last Admin: 07/03/16 14:13 Dose: 999 mls/hr Octreotide Acetate 500 mcg/ (Sodium Chloride) 500 mls @ 50 mls/hr IV Q10H DILLAN PRN Reason: 50 MCG/HR Last Admin: 07/04/16 03:12 Dose: Not Given Sodium Chloride (Normal Saline) 1,000 mls @ 75 mls/hr IV ASDIRECTED DILLAN Last Infusion: 07/04/16 01:50 Dose: 75 mls/hr Magnesium Sulfate 2 gm/ Premix 50 mls @ 50 mls/hr IV ONETIME ONE Stop: 07/05/16 00:51 Last Admin: 07/05/16 00:11 Dose: 50 mls/hr Potassium Phosphate 20 mmole/ (Sodium Chloride) 506.6667 mls @ 126.667 mls/hr IV NOW ONE Stop: 07/05/16 04:14 Last Admin: 07/05/16 00:52 Dose: 126.667 mls/hr Potassium Chloride/Sodium Chloride (Normal Saline With 20 Meq Kcl) 500 mls @ 250 mls/hr IV ONETIME ONE Stop: 07/05/16 02:54 Last Admin: 07/05/16 01:22 Dose: 250 mls/hr Pantoprazole Sodium (Protonix Iv) 80 mg IVPUSH .BOLUS ONE Stop: 07/03/16 13:56 Last Admin: 07/03/16 14:00 Dose: 80 mg Potassium Phosphate (Potassium Phosphates) 20 mmole IV ONETIME ONE Stop: 07/05/16 00:01 - Exam General: alert, oriented Lungs: Clear to auscultation, Normal respiratory effort Cardiovascular: regular rate, regular rhythm Abdomen: bowel sounds present, soft, no tenderness, no distension Extremities: no edema Skin: warm, dry, intact Neurological: no new focal deficit - Problem List Review Problem List Initiated/Reviewed/Updated: Yes - My Orders Last 24 Hours: My Active Orders 07/04/16 Lunch Clear Liquid Diet [DIET] 07/05/16 05:11 CBC WITH AUTO DIFF [HEME] AM 07/05/16 09:44 Transfer Patient (Change bed) [ADT] Routine 07/05/16 17:00 HGB [HEMOGLOBIN] [HEME] Routine 07/06/16 05:11 BASIC METABOLIC PANEL,BMP [CHEM] AM CBC WITH AUTO DIFF [HEME] AM 07/07/16 05:11 CBC WITH AUTO DIFF [HEME] AM - Plan Plan:: 65 yo male admitted for GI bleed with acute blood loss anemia. Transfused 7 units of pRBC. Hgb 10.1 today. Will continue IV protonix Dr. Stoll is consulted and possible EGD tomorrow.
--- NOTE | 2016-07-05 11:06 | PCM.SURGPN ---
- General Info Date of Service: 07/05/16 - Review of Systems General: Reports: no symptoms (had BM, still black, denied abd pain; h/h = 10.1 after 7 RBC txf) - Patient Data Vitals - most recent: Last Vital Signs Temp 97.7 F 07/05/16 10:34 Pulse 86 07/04/16 10:26 Resp 24 H 07/05/16 10:34 BP 133/64 07/05/16 08:00 Pulse Ox 93 L 07/05/16 10:34 Weight - most recent: 220 lb 10.923 oz I&O - last 24 hours: Intake & Output 07/04/16 07/05/16 07/05/16 22:59 06:59 14:59 Intake Total 2600 1796 Output Total 1200 640 Balance 1400 1156 Lab Results last 24 hrs: Laboratory Results - last 24 hr 07/04/16 07/04/16 07/04/16 Range/Units 11:03 20:00 22:03 WBC 18.56 H (4.0-11.0) K/uL RBC 3.11 L (4.50-5.90) M/uL Hgb 9.2 L 9.4 L (13.0-17.0) g/dL Hct 26.9 L 27.6 L (38.0-50.0) % MCV 86.5 (80.0-98.0) fL MCH 29.6 (27.0-32.0) pg MCHC 34.2 (31.0-37.0) g/dL RDW Std Deviation 47.6 (28.0-62.0) fl RDW Coeff of Emily 17 H (11.0-15.0) % Plt Count 165 (150-400) K/uL MPV 8.60 (7.40-12.00) fL Neut % (Auto) (48.0-80.0) % Lymph % (Auto) (16.0-40.0) % Bullock % (Auto) (0.0-15.0) % Eos % (Auto) (0.0-7.0) % Baso % (Auto) (0.0-1.5) % Neut # (1.4-5.7) K/uL Lymph # (0.6-2.4) K/uL Bullock # (0.0-0.8) K/uL Eos # (0.0-0.7) K/uL Baso # (0.0-0.1) K/uL Nucleated RBC % 4.7 /100WBC Nucleated RBCs # 0 K/uL Sodium 139 (136-146) mmol/L Potassium 3.5 (3.5-5.1) mmol/L Chloride 108 (98-110) mmol/L Carbon Dioxide 25 (21-31) mmol/L BUN 18 (6.0-23.0) mg/dL Creatinine 0.8 (0.6-1.5) mg/dL Est Cr Clr Drug Dosing 108.50 mL/min Estimated GFR (MDRD) > 60.0 ml/min Glucose 119 H (60-110) mg/dL Calcium 7.2 L (8.8-10.8) mg/dL Phosphorus (2.4-4.7) mg/dL Magnesium 1.3 L (1.5-2.3) mEq/L 07/04/16 07/05/16 07/05/16 Range/Units 22:03 02:30 06:10 WBC 15.85 H (4.0-11.0) K/uL RBC 2.87 L (4.50-5.90) M/uL Hgb 8.6 L (13.0-17.0) g/dL Hct 25.8 L (38.0-50.0) % MCV 89.9 (80.0-98.0) fL MCH 30.0 (27.0-32.0) pg MCHC 33.3 (31.0-37.0) g/dL RDW Std Deviation 46.3 (28.0-62.0) fl RDW Coeff of Emily 17 H (11.0-15.0) % Plt Count 175 (150-400) K/uL MPV 8.30 (7.40-12.00) fL Neut % (Auto) 79.2 (48.0-80.0) % Lymph % (Auto) 12.0 L (16.0-40.0) % Bullock % (Auto) 7.4 (0.0-15.0) % Eos % (Auto) 1.3 (0.0-7.0) % Baso % (Auto) 0.1 (0.0-1.5) % Neut # 12.6 H (1.4-5.7) K/uL Lymph # 1.9 (0.6-2.4) K/uL Bullock # 1.2 H (0.0-0.8) K/uL Eos # 0.2 (0.0-0.7) K/uL Baso # 0.0 (0.0-0.1) K/uL Nucleated RBC % /100WBC Nucleated RBCs # K/uL Sodium (136-146) mmol/L Potassium (3.5-5.1) mmol/L Chloride (98-110) mmol/L Carbon Dioxide (21-31) mmol/L BUN (6.0-23.0) mg/dL Creatinine (0.6-1.5) mg/dL Est Cr Clr Drug Dosing mL/min Estimated GFR (MDRD) ml/min Glucose (60-110) mg/dL Calcium 7.1 L 7.2 L (8.8-10.8) mg/dL Phosphorus 2.2 L 3.4 (2.4-4.7) mg/dL Magnesium 1.9 (1.5-2.3) mEq/L 07/05/16 07/05/16 Range/Units 06:10 08:03 WBC (4.0-11.0) K/uL RBC (4.50-5.90) M/uL Hgb 10.1 L (13.0-17.0) g/dL Hct 30.3 L (38.0-50.0) % MCV (80.0-98.0) fL MCH (27.0-32.0) pg MCHC (31.0-37.0) g/dL RDW Std Deviation (28.0-62.0) fl RDW Coeff of Emily (11.0-15.0) % Plt Count (150-400) K/uL MPV (7.40-12.00) fL Neut % (Auto) (48.0-80.0) % Lymph % (Auto) (16.0-40.0) % Bullock % (Auto) (0.0-15.0) % Eos % (Auto) (0.0-7.0) % Baso % (Auto) (0.0-1.5) % Neut # (1.4-5.7) K/uL Lymph # (0.6-2.4) K/uL Bullock # (0.0-0.8) K/uL Eos # (0.0-0.7) K/uL Baso # (0.0-0.1) K/uL Nucleated RBC % /100WBC Nucleated RBCs # K/uL Sodium 139 (136-146) mmol/L Potassium 4.0 (3.5-5.1) mmol/L Chloride 110 (98-110) mmol/L Carbon Dioxide 23 (21-31) mmol/L BUN 15 (6.0-23.0) mg/dL Creatinine 0.8 (0.6-1.5) mg/dL Est Cr Clr Drug Dosing 108.50 mL/min Estimated GFR (MDRD) > 60.0 ml/min Glucose 94 (60-110) mg/dL Calcium 7.0 L (8.8-10.8) mg/dL Phosphorus (2.4-4.7) mg/dL Magnesium (1.5-2.3) mEq/L Chalo Results last 24 hrs: Microbiology 07/03/16 16:52 Aerobic Blood Culture - Preliminary Blood - Venous - Lab Draw NO GROWTH AFTER 1 DAY Anaerobic Blood Culture - Preliminary NO GROWTH AFTER 1 DAY 07/03/16 16:46 Aerobic Blood Culture - Preliminary Blood - Venous NO GROWTH AFTER 1 DAY Anaerobic Blood Culture - Preliminary NO GROWTH AFTER 1 DAY Med Orders - Current: Current Medications Bisacodyl (Dulcolax) 20 mg PO ONETIME ONE Stop: 07/05/16 13:01 Pantoprazole Sodium 80 mg/ (Sodium Chloride) 100 mls @ 10 mls/hr IV Q10H [facility] Last Admin: 07/05/16 05:21 Dose: 10 mls/hr Lactated Ringer's (Ringers, Lactated) 1,000 mls @ 125 mls/hr IV ASDIRECTED [facility] Ondansetron HCl (Zofran) 4 mg IVPUSH Q4H PRN PRN Reason: Nausea Polyethylene Glycol (Miralax) 119 gm PO ONETIME ONE Stop: 07/05/16 15:01 Polyethylene Glycol (Miralax) 119 gm PO ONETIME ONE Stop: 07/05/16 19:01 Sodium Chloride (Saline Flush) 10 ml FLUSH ASDIRECTED PRN PRN Reason: Keep Vein Open Last Admin: 07/03/16 14:14 Dose: 10 ml Sodium Chloride (Saline Flush) 2.5 ml FLUSH ASDIRECTED PRN PRN Reason: Keep Vein Open Last Admin: 07/03/16 14:02 Dose: 2.5 ml Sodium Chloride (Saline Flush) 10 ml FLUSH ASDIRECTED PRN PRN Reason: Keep Vein Open Sodium Chloride (Saline Flush) 2.5 ml FLUSH ASDIRECTED PRN PRN Reason: Keep Vein Open Last Admin: 07/03/16 14:14 Dose: 2.5 ml Discontinued Medications Bisacodyl (Dulcolax) 20 mg PO ONETIME ONE Stop: 07/05/16 10:33 Last Admin: 07/05/16 10:35 Dose: Not Given Calcium Gluconate (Calcium Gluconate) 1 gm IV ONETIME ONE Stop: 07/04/16 10:16 Last Admin: 07/04/16 10:45 Dose: 1 gm Calcium Gluconate (Calcium Gluconate) 1 gm IV ONETIME ONE Stop: 07/05/16 00:36 Last Admin: 07/05/16 00:54 Dose: 1 gm Pantoprazole Sodium 80 mg/ (Sodium Chloride) 100 mls @ 10 mls/hr IV .Continuous DILLAN Sodium Chloride (Normal Saline) 1,000 mls @ 999 mls/hr IV .Bolus ONE Stop: 07/03/16 15:04 Last Admin: 07/03/16 14:13 Dose: 999 mls/hr Octreotide Acetate 500 mcg/ (Sodium Chloride) 500 mls @ 50 mls/hr IV Q10H [facility] PRN Reason: 50 MCG/HR Last Admin: 07/04/16 03:12 Dose: Not Given Sodium Chloride (Normal Saline) 1,000 mls @ 75 mls/hr IV ASDIRECTED [facility] Last Infusion: 07/04/16 01:50 Dose: 75 mls/hr Magnesium Sulfate 2 gm/ Premix 50 mls @ 50 mls/hr IV ONETIME ONE Stop: 07/05/16 00:51 Last Admin: 07/05/16 00:11 Dose: 50 mls/hr Potassium Phosphate 20 mmole/ (Sodium Chloride) 506.6667 mls @ 126.667 mls/hr IV NOW ONE Stop: 07/05/16 04:14 Last Admin: 07/05/16 00:52 Dose: 126.667 mls/hr Potassium Chloride/Sodium Chloride (Normal Saline With 20 Meq Kcl) 500 mls @ 250 mls/hr IV ONETIME ONE Stop: 07/05/16 02:54 Last Admin: 07/05/16 01:22 Dose: 250 mls/hr Pantoprazole Sodium (Protonix Iv) 80 mg IVPUSH .BOLUS ONE Stop: 07/03/16 13:56 Last Admin: 07/03/16 14:00 Dose: 80 mg Potassium Phosphate (Potassium Phosphates) 20 mmole IV ONETIME ONE Stop: 07/05/16 00:01 - Exam General: alert, oriented Abdomen: soft, no tenderness, no distension - Problem List Review Problem List Initiated/Reviewed/Updated: Yes - My Orders Last 24 Hours: Active Orders 24 hr Category Date Time Status Transfer Patient (Change bed) [ADT] Routine ADT 07/05/16 09:44 Ordered Communication Order [RC] ROUTINE Care 07/05/16 10:13 Active Communication Order [RC] ROUTINE Care 07/05/16 10:15 Active Communication Order [RC] ROUTINE Care 07/05/16 10:17 Active Daily Weight [Height and Weight] [RC] DAILY Care 07/04/16 10:41 Active Verify Patient Consent Obtain [RC] ASDIRECTED Care 07/06/16 05:00 Active Clear Liquid Diet [DIET] Diet 07/04/16 Lunch Active NPO After Midnight [Nothing per Oral After Midnight Diet 07/05/16 Dinner Active Diet] [DIET] Nothing per Oral After Midnight Diet [DIET] Diet 07/05/16 Dinner Active BASIC METABOLIC PANEL,BMP [CHEM] AM Lab 07/06/16 05:11 Ordered CBC WITH AUTO DIFF [HEME] AM Lab 07/05/16 05:11 Ordered CBC WITH AUTO DIFF [HEME] AM Lab 07/06/16 05:11 Ordered CBC WITH AUTO DIFF [HEME] AM Lab 07/07/16 05:11 Ordered HGB [HEMOGLOBIN] [HEME] Routine Lab 07/05/16 17:00 Ordered INR,PT,PROTHROMBIN TIME [COAG] Routine Lab 07/05/16 10:48 Ordered PTT,PARTIAL THROMBOPLSTIN TIME [COAG] Routine Lab 07/05/16 10:48 Ordered Bisacodyl [Dulcolax] Med 07/05/16 13:00 Once 20 mg PO ONETIME ONE Lactated Ringers [Ringers, Lactated] 1,000 ml Med 07/06/16 05:00 Active IV ASDIRECTED Polyethylene Glycol 3350 [MiraLAX] Med 07/05/16 15:00 Once 119 gm PO ONETIME ONE Polyethylene Glycol 3350 [MiraLAX] Med 07/05/16 19:00 Once 119 gm PO ONETIME ONE Transfuse RBC [Transfuse Red Blood Cells] [COMM] Oth 07/05/16 03:30 Ordered Routine Medication Orders Bisacodyl (Dulcolax) 20 mg PO ONETIME ONE Stop: 07/05/16 13:01 Pantoprazole Sodium 80 mg/ (Sodium Chloride) 100 mls @ 10 mls/hr IV Q10H [facility] Last Admin: 07/05/16 05:21 Dose: 10 mls/hr Infusion: 07/05/16 05:21 Dose: 10 mls/hr Infusion: 07/05/16 01:10 Dose: 10 mls/hr Infusion: 07/05/16 01:00 Dose: 0 mls/hr Admin: 07/04/16 21:41 Dose: Not Given Admin: 07/04/16 19:10 Dose: 10 mls/hr Infusion: 07/04/16 11:01 Dose: 10 mls/hr Admin: 07/04/16 00:01 Dose: 10 mls/hr Infusion: 07/04/16 00:01 Dose: 10 mls/hr Admin: 07/03/16 14:12 Dose: 10 mls/hr Lactated Ringer's (Ringers, Lactated) 1,000 mls @ 125 mls/hr IV ASDIRECTED [facility] Ondansetron HCl (Zofran) 4 mg IVPUSH Q4H PRN PRN Reason: Nausea Polyethylene Glycol (Miralax) 119 gm PO ONETIME ONE Stop: 07/05/16 15:01 Polyethylene Glycol (Miralax) 119 gm PO ONETIME ONE Stop: 07/05/16 19:01 Sodium Chloride (Saline Flush) 10 ml FLUSH ASDIRECTED PRN PRN Reason: Keep Vein Open Last Admin: 07/03/16 14:14 Dose: 10 ml Admin: 07/03/16 14:02 Dose: 10 ml Sodium Chloride (Saline Flush) 2.5 ml FLUSH ASDIRECTED PRN PRN Reason: Keep Vein Open Last Admin: 07/03/16 14:02 Dose: 2.5 ml Sodium Chloride (Saline Flush) 10 ml FLUSH ASDIRECTED PRN PRN Reason: Keep Vein Open Sodium Chloride (Saline Flush) 2.5 ml FLUSH ASDIRECTED PRN PRN Reason: Keep Vein Open Last Admin: 07/03/16 14:14 Dose: 2.5 ml - Assessment Assessment (Free Text/Narrative):: doing well after txf; h/h 10.1; scheduled for egd/colonoscopy tomorrow - Plan Plan (Free Text/Narrative):: doing well after txf; h/h 10.1; scheduled for egd/colonoscopy tomorrow
[2016-07-05] MEDS ORDERED: Polyethylene Glycol 3350 Powder 17 GM Packet PO ONE ×2 (15:00→19:00)
--- NOTE | 2016-07-05 20:33 | CR ---
EXAM DATE: 07/03/16 PATIENT'S AGE: 65 Patient: TORI JACOBSON Facility: [place], [place] Site . Site : [id number] Study: XRay Chest [id number] 1:44:55 PM Ordering Physician: Link Hurst Final Report: INDICATION: Pain/shortness of breath Findings: A portable AP view of the chest was obtained. The cardiac silhouette and pulmonary vasculature are within normal limits. The lungs are clear bilaterally. IMPRESSION: No evidence of acute pulmonary disease. Dictated by Allen Larsen MD @ 07/03/2016 2:23:54 PM Dictated by: Allen Larsen MD @ 07/03/2016 14:24:22 (Electronic Signature) Report Signed by Proxy and Original Signed Document filed in the Medical Record. MTDD
[2016-07-06] MEDS: Pantoprazole 80 MG in Sodium Chloride 0.9% 100 ML IV SCH ×2 (01:22→13:12)
[2016-07-06] MEDS ORDERED: Lactated Ringers 1,000 ML IV SCH (05:00)
[2016-07-06 05:19] LABS: CHLORIDE,CL 110 mmol/L (98-110); SODIUM,NA 140 mmol/L (136-146)
[2016-07-06] MEDS ORDERED: Lidocaine 2% 5 ML SDV ONE (10:49)
[2016-07-06] MEDS ORDERED: Propofol 200 MG/20 ML SDV ONE ×2 (10:50→12:06)
[2016-07-06] MEDS ORDERED: fentaNYL 100 MCG/2 ML SDV ONE (10:50)
[2016-07-06] MEDS ORDERED: Midazolam 1 MG/ML 2 ML SDV ONE (10:50)
--- NOTE | 2016-07-06 10:57 | PCM.PN ---
- Review of Systems Systems Review Comment:: denies abdominal pain - Patient Data Vitals - most recent: Last Vital Signs Temp 37.2 C 07/06/16 08:00 Pulse 81 07/06/16 08:00 Resp 22 H 07/06/16 08:00 BP 144/77 H 07/06/16 08:00 Pulse Ox 96 07/06/16 08:00 Weight - most recent: 99.5 kg I&O - last 24 hours: Intake & Output 07/05/16 07/06/16 07/06/16 22:59 06:59 14:59 Intake Total 1920 2100 Output Total 300 600 Balance 1620 1500 Lab Results last 24 hrs: Laboratory Results - last 24 hr 07/05/16 07/05/16 07/05/16 Range/Units 07:30 11:07 17:30 WBC 13.62 H (4.0-11.0) K/uL RBC (4.50-5.90) M/uL Hgb 9.9 L (13.0-17.0) g/dL Hct (38.0-50.0) % MCV (80.0-98.0) fL MCH (27.0-32.0) pg MCHC (31.0-37.0) g/dL RDW Std Deviation (28.0-62.0) fl RDW Coeff of Emily (11.0-15.0) % Plt Count (150-400) K/uL MPV (7.40-12.00) fL Add Manual Diff Neutrophils % (Manual) (48.0-80.0) % Band Neutrophils % % Lymphocytes % (Manual) (16.0-40.0) % Monocytes % (Manual) (0.0-15.0) % Eosinophils % (Manual) (0.0-7.0) % Basophils % (Manual) (0.0-1.5) % Nucleated RBC % /100WBC Absolute Seg Neuts Band Neutrophils # Lymphocytes # (Manual) Monocytes # (Manual) Eosinophils # (Manual) Basophils # (Manual) Nucleated RBCs # K/uL INR 0.97 (0.86-1.11) APTT 23.6 (18.6-31.3) SEC Sodium (136-146) mmol/L Potassium (3.5-5.1) mmol/L Chloride (98-110) mmol/L Carbon Dioxide (21-31) mmol/L BUN (6.0-23.0) mg/dL Creatinine (0.6-1.5) mg/dL Est Cr Clr Drug Dosing mL/min Estimated GFR (MDRD) ml/min Glucose (60-110) mg/dL Calcium (8.8-10.8) mg/dL 07/06/16 07/06/16 Range/Units 04:44 04:44 WBC 11.50 H (4.0-11.0) K/uL RBC 3.35 L (4.50-5.90) M/uL Hgb 9.8 L (13.0-17.0) g/dL Hct 29.3 L (38.0-50.0) % MCV 87.5 (80.0-98.0) fL MCH 29.3 (27.0-32.0) pg MCHC 33.4 (31.0-37.0) g/dL RDW Std Deviation 50.4 (28.0-62.0) fl RDW Coeff of Emily 17 H (11.0-15.0) % Plt Count 153 (150-400) K/uL MPV 8.60 (7.40-12.00) fL Add Manual Diff YES Neutrophils % (Manual) 74 (48.0-80.0) % Band Neutrophils % 4 % Lymphocytes % (Manual) 10 L (16.0-40.0) % Monocytes % (Manual) 5 (0.0-15.0) % Eosinophils % (Manual) 5 (0.0-7.0) % Basophils % (Manual) 2 H (0.0-1.5) % Nucleated RBC % 0.0 /100WBC Absolute Seg Neuts 8.5 Band Neutrophils # 0.5 Lymphocytes # (Manual) 1.2 Monocytes # (Manual) 0.6 Eosinophils # (Manual) 0.6 Basophils # (Manual) 0 Nucleated RBCs # 0 K/uL INR (0.86-1.11) APTT (18.6-31.3) SEC Sodium 140 (136-146) mmol/L Potassium 3.6 (3.5-5.1) mmol/L Chloride 110 (98-110) mmol/L Carbon Dioxide 24 (21-31) mmol/L BUN 9 (6.0-23.0) mg/dL Creatinine 0.8 (0.6-1.5) mg/dL Est Cr Clr Drug Dosing 108.50 mL/min Estimated GFR (MDRD) > 60.0 ml/min Glucose 95 (60-110) mg/dL Calcium 7.2 L (8.8-10.8) mg/dL Chalo Results last 24 hrs: Microbiology 07/03/16 16:52 Aerobic Blood Culture - Preliminary Blood - Venous - Lab Draw NO GROWTH AFTER 2 DAYS Anaerobic Blood Culture - Preliminary NO GROWTH AFTER 2 DAYS 07/03/16 16:46 Aerobic Blood Culture - Preliminary Blood - Venous NO GROWTH AFTER 2 DAYS Anaerobic Blood Culture - Preliminary NO GROWTH AFTER 2 DAYS Med Orders - Current: Current Medications Pantoprazole Sodium 80 mg/ (Sodium Chloride) 100 mls @ 10 mls/hr IV Q10H [facility] Last Admin: 07/06/16 01:22 Dose: 10 mls/hr Lactated Ringer's (Ringers, Lactated) 1,000 mls @ 125 mls/hr IV ASDIRECTED [facility] Last Admin: 07/06/16 05:00 Dose: 125 mls/hr Ondansetron HCl (Zofran) 4 mg IVPUSH Q4H PRN PRN Reason: Nausea Sodium Chloride (Saline Flush) 10 ml FLUSH ASDIRECTED PRN PRN Reason: Keep Vein Open Last Admin: 07/03/16 14:14 Dose: 10 ml Sodium Chloride (Saline Flush) 2.5 ml FLUSH ASDIRECTED PRN PRN Reason: Keep Vein Open Last Admin: 07/03/16 14:02 Dose: 2.5 ml Sodium Chloride (Saline Flush) 10 ml FLUSH ASDIRECTED PRN PRN Reason: Keep Vein Open Sodium Chloride (Saline Flush) 2.5 ml FLUSH ASDIRECTED PRN PRN Reason: Keep Vein Open Last Admin: 07/03/16 14:14 Dose: 2.5 ml Discontinued Medications Bisacodyl (Dulcolax) 20 mg PO ONETIME ONE Stop: 07/05/16 10:33 Last Admin: 07/05/16 10:35 Dose: Not Given Bisacodyl (Dulcolax) 20 mg PO ONETIME ONE Stop: 07/05/16 13:01 Last Admin: 07/05/16 13:02 Dose: 20 mg Calcium Gluconate (Calcium Gluconate) 1 gm IV ONETIME ONE Stop: 07/04/16 10:16 Last Admin: 07/04/16 10:45 Dose: 1 gm Calcium Gluconate (Calcium Gluconate) 1 gm IV ONETIME ONE Stop: 07/05/16 00:36 Last Admin: 07/05/16 00:54 Dose: 1 gm Fentanyl (Sublimaze) Confirm Administered Dose 100 mcg .ROUTE .STK-MED ONE Stop: 07/06/16 10:51 Pantoprazole Sodium 80 mg/ (Sodium Chloride) 100 mls @ 10 mls/hr IV .Continuous DILLAN Sodium Chloride (Normal Saline) 1,000 mls @ 999 mls/hr IV .Bolus ONE Stop: 07/03/16 15:04 Last Admin: 07/03/16 14:13 Dose: 999 mls/hr Octreotide Acetate 500 mcg/ (Sodium Chloride) 500 mls @ 50 mls/hr IV Q10H D[facility]AN PRN Reason: 50 MCG/HR Last Admin: 07/04/16 03:12 Dose: Not Given Sodium Chloride (Normal Saline) 1,000 mls @ 75 mls/hr IV ASDIRECTED DILLAN Last Infusion: 07/04/16 01:50 Dose: 75 mls/hr Magnesium Sulfate 2 gm/ Premix 50 mls @ 50 mls/hr IV ONETIME ONE Stop: 07/05/16 00:51 Last Admin: 07/05/16 00:11 Dose: 50 mls/hr Potassium Phosphate 20 mmole/ (Sodium Chloride) 506.6667 mls @ 126.667 mls/hr IV NOW ONE Stop: 07/05/16 04:14 Last Admin: 07/05/16 00:52 Dose: 126.667 mls/hr Potassium Chloride/Sodium Chloride (Normal Saline With 20 Meq Kcl) 500 mls @ 250 mls/hr IV ONETIME ONE Stop: 07/05/16 02:54 Last Admin: 07/05/16 01:22 Dose: 250 mls/hr Lidocaine (Xylocaine-Mpf 2%) Confirm Administered Dose 10 ml .ROUTE .STK-MED ONE Stop: 07/06/16 10:50 Midazolam HCl (Versed 1 Mg/Ml) Confirm Administered Dose 2 mg .ROUTE .STK-MED ONE Stop: 07/06/16 10:51 Pantoprazole Sodium (Protonix Iv) 80 mg IVPUSH .BOLUS ONE Stop: 07/03/16 13:56 Last Admin: 07/03/16 14:00 Dose: 80 mg Polyethylene Glycol (Miralax) 119 gm PO ONETIME ONE Stop: 07/05/16 15:01 Last Admin: 07/05/16 15:02 Dose: 119 gm Polyethylene Glycol (Miralax) 119 gm PO ONETIME ONE Stop: 07/05/16 19:01 Last Admin: 07/05/16 18:29 Dose: 119 gm Potassium Phosphate (Potassium Phosphates) 20 mmole IV ONETIME ONE Stop: 07/05/16 00:01 Propofol (Diprivan 20 Ml) Confirm Administered Dose 400 mg .ROUTE .STK-MED ONE Stop: 07/06/16 10:51 - Exam General: alert, oriented Lungs: Clear to auscultation, Normal respiratory effort Cardiovascular: Regular Rate, Regular Rhythm Extremities: no edema - Problem List Review Problem List Initiated/Reviewed/Updated: Yes - My Orders Last 24 Hours: My Active Orders 07/07/16 05:11 CBC WITH AUTO DIFF [HEME] AM - Plan Plan:: 65 yo male admitted for GI bleed with acute blood loss anemia. Transfused 7 units of pRBC. Hgb 9.8 today. Will continue IV protonix Dr. Stoll is consulted and plans on endoscopy today.
[2016-07-06] MEDS ORDERED: ePHEDrine 50 MG/ML SDV ONE (11:50)
--- NOTE | 2016-07-06 12:33 | PCM.OPNOTE ---
- General Post-Op/Procedure Note Date of Surgery/Procedure: 07/06/16 Operative Procedure(s): egd and colonoscopy Findings: egd/colonoscope did not see any blood/black stool at all; ok to feed pt, and send home with prilosec 20 mg po qd X 1 mo; and fu w me 1 wk; [id number] Pre Op Diagnosis: gib Post-Op Diagnosis: resolved gib Anesthesia Technique: Moderate sedation Primary Surgeon: Sylvester Stoll Complications: None Condition: Good Free Text/Narrative:: Intake & Output 07/05/16 07/06/16 07/06/16 22:59 06:59 14:59 Intake Total 1920 2100 Output Total 300 600 Balance 1620 1500
--- NOTE | 2016-07-06 12:35 | PCM.SURGPN ---
- General Info Date of Service: 07/06/16 Functional Status: Reports: pain controlled - Review of Systems General: Reports: No Symptoms Gastrointestinal: Reports: No symptoms - Patient Data Vitals - most recent: Last Vital Signs Temp 97.8 F 07/06/16 11:20 Pulse 86 07/06/16 11:20 Resp 22 H 07/06/16 11:20 BP 152/92 H 07/06/16 11:20 Pulse Ox 96 07/06/16 11:20 Weight - most recent: 219 lb 5.759 oz I&O - last 24 hours: Intake & Output 07/05/16 07/06/16 07/06/16 22:59 06:59 14:59 Intake Total 1920 2100 Output Total 300 600 Balance 1620 1500 Lab Results last 24 hrs: Laboratory Results - last 24 hr 07/05/16 07/06/16 07/06/16 Range/Units 17:30 04:44 04:44 WBC 11.50 H (4.0-11.0) K/uL RBC 3.35 L (4.50-5.90) M/uL Hgb 9.9 L 9.8 L (13.0-17.0) g/dL Hct 29.3 L (38.0-50.0) % MCV 87.5 (80.0-98.0) fL MCH 29.3 (27.0-32.0) pg MCHC 33.4 (31.0-37.0) g/dL RDW Std Deviation 50.4 (28.0-62.0) fl RDW Coeff of Emily 17 H (11.0-15.0) % Plt Count 153 (150-400) K/uL MPV 8.60 (7.40-12.00) fL Add Manual Diff YES Neutrophils % (Manual) 74 (48.0-80.0) % Band Neutrophils % 4 % Lymphocytes % (Manual) 10 L (16.0-40.0) % Monocytes % (Manual) 5 (0.0-15.0) % Eosinophils % (Manual) 5 (0.0-7.0) % Basophils % (Manual) 2 H (0.0-1.5) % Nucleated RBC % 0.0 /100WBC Absolute Seg Neuts 8.5 Band Neutrophils # 0.5 Lymphocytes # (Manual) 1.2 Monocytes # (Manual) 0.6 Eosinophils # (Manual) 0.6 Basophils # (Manual) 0 Nucleated RBCs # 0 K/uL Sodium 140 (136-146) mmol/L Potassium 3.6 (3.5-5.1) mmol/L Chloride 110 (98-110) mmol/L Carbon Dioxide 24 (21-31) mmol/L BUN 9 (6.0-23.0) mg/dL Creatinine 0.8 (0.6-1.5) mg/dL Est Cr Clr Drug Dosing 108.50 mL/min Estimated GFR (MDRD) > 60.0 ml/min Glucose 95 (60-110) mg/dL Calcium 7.2 L (8.8-10.8) mg/dL Chalo Results last 24 hrs: Microbiology 07/03/16 16:52 Aerobic Blood Culture - Preliminary Blood - Venous - Lab Draw NO GROWTH AFTER 2 DAYS Anaerobic Blood Culture - Preliminary NO GROWTH AFTER 2 DAYS 07/03/16 16:46 Aerobic Blood Culture - Preliminary Blood - Venous NO GROWTH AFTER 2 DAYS Anaerobic Blood Culture - Preliminary NO GROWTH AFTER 2 DAYS Med Orders - Current: Current Medications Omeprazole (Omeprazole) 20 mg PO ACBREAKFAST DILLAN Ondansetron HCl (Zofran) 4 mg IVPUSH Q4H PRN PRN Reason: Nausea Sodium Chloride (Saline Flush) 10 ml FLUSH ASDIRECTED PRN PRN Reason: Keep Vein Open Last Admin: 07/03/16 14:14 Dose: 10 ml Sodium Chloride (Saline Flush) 2.5 ml FLUSH ASDIRECTED PRN PRN Reason: Keep Vein Open Last Admin: 07/03/16 14:02 Dose: 2.5 ml Sodium Chloride (Saline Flush) 10 ml FLUSH ASDIRECTED PRN PRN Reason: Keep Vein Open Sodium Chloride (Saline Flush) 2.5 ml FLUSH ASDIRECTED PRN PRN Reason: Keep Vein Open Last Admin: 07/03/16 14:14 Dose: 2.5 ml Discontinued Medications Bisacodyl (Dulcolax) 20 mg PO ONETIME ONE Stop: 07/05/16 10:33 Last Admin: 07/05/16 10:35 Dose: Not Given Bisacodyl (Dulcolax) 20 mg PO ONETIME ONE Stop: 07/05/16 13:01 Last Admin: 07/05/16 13:02 Dose: 20 mg Calcium Gluconate (Calcium Gluconate) 1 gm IV ONETIME ONE Stop: 07/04/16 10:16 Last Admin: 07/04/16 10:45 Dose: 1 gm Calcium Gluconate (Calcium Gluconate) 1 gm IV ONETIME ONE Stop: 07/05/16 00:36 Last Admin: 07/05/16 00:54 Dose: 1 gm Ephedrine Sulfate (Ephedrine Sulfate) Confirm Administered Dose 50 mg .ROUTE .STK-MED ONE Stop: 07/06/16 11:51 Fentanyl (Sublimaze) Confirm Administered Dose 100 mcg .ROUTE .STK-MED ONE Stop: 07/06/16 10:51 Pantoprazole Sodium 80 mg/ (Sodium Chloride) 100 mls @ 10 mls/hr IV .Continuous DILLAN Pantoprazole Sodium 80 mg/ (Sodium Chloride) 100 mls @ 10 mls/hr IV Q10H DILLAN Last Admin: 07/06/16 01:22 Dose: 10 mls/hr Sodium Chloride (Normal Saline) 1,000 mls @ 999 mls/hr IV .Bolus ONE Stop: 07/03/16 15:04 Last Admin: 07/03/16 14:13 Dose: 999 mls/hr Octreotide Acetate 500 mcg/ (Sodium Chloride) 500 mls @ 50 mls/hr IV Q10H DILLAN PRN Reason: 50 MCG/HR Last Admin: 07/04/16 03:12 Dose: Not Given Sodium Chloride (Normal Saline) 1,000 mls @ 75 mls/hr IV ASDIRECTED DILLAN Last Infusion: 07/04/16 01:50 Dose: 75 mls/hr Magnesium Sulfate 2 gm/ Premix 50 mls @ 50 mls/hr IV ONETIME ONE Stop: 07/05/16 00:51 Last Admin: 07/05/16 00:11 Dose: 50 mls/hr Potassium Phosphate 20 mmole/ (Sodium Chloride) 506.6667 mls @ 126.667 mls/hr IV NOW ONE Stop: 07/05/16 04:14 Last Admin: 07/05/16 00:52 Dose: 126.667 mls/hr Potassium Chloride/Sodium Chloride (Normal Saline With 20 Meq Kcl) 500 mls @ 250 mls/hr IV ONETIME ONE Stop: 07/05/16 02:54 Last Admin: 07/05/16 01:22 Dose: 250 mls/hr Lactated Ringer's (Ringers, Lactated) 1,000 mls @ 125 mls/hr IV ASDIRECTED DILLAN Last Admin: 07/06/16 05:00 Dose: 125 mls/hr Lidocaine (Xylocaine-Mpf 2%) Confirm Administered Dose 10 ml .ROUTE .STK-MED ONE Stop: 07/06/16 10:50 Midazolam HCl (Versed 1 Mg/Ml) Confirm Administered Dose 2 mg .ROUTE .STK-MED ONE Stop: 07/06/16 10:51 Pantoprazole Sodium (Protonix Iv) 80 mg IVPUSH .BOLUS ONE Stop: 07/03/16 13:56 Last Admin: 07/03/16 14:00 Dose: 80 mg Polyethylene Glycol (Miralax) 119 gm PO ONETIME ONE Stop: 07/05/16 15:01 Last Admin: 07/05/16 15:02 Dose: 119 gm Polyethylene Glycol (Miralax) 119 gm PO ONETIME ONE Stop: 07/05/16 19:01 Last Admin: 07/05/16 18:29 Dose: 119 gm Potassium Phosphate (Potassium Phosphates) 20 mmole IV ONETIME ONE Stop: 07/05/16 00:01 Propofol (Diprivan 20 Ml) Confirm Administered Dose 400 mg .ROUTE .STK-MED ONE Stop: 07/06/16 10:51 Propofol (Diprivan 20 Ml) Confirm Administered Dose 200 mg .ROUTE .STK-MED ONE Stop: 07/06/16 12:07 - Exam Abdomen: soft, no tenderness, no distension - Problem List Review Problem List Initiated/Reviewed/Updated: Yes - My Orders Last 24 Hours: Active Orders 24 hr Category Date Time Status Verify Patient Consent Obtain [RC] ASDIRECTED Care 07/06/16 05:00 Active Advance Diet Instructions [DIET] Diet 07/06/16 Dinner Active NPO After Midnight [Nothing per Oral After Midnight Diet 07/05/16 Dinner Active Diet] [DIET] CBC WITH AUTO DIFF [HEME] AM Lab 07/07/16 05:11 Ordered Omeprazole Med 07/07/16 07:30 Active 20 mg PO ACBREAKFAST Medication Orders Omeprazole (Omeprazole) 20 mg PO ACBREAKFAST [facility] Ondansetron HCl (Zofran) 4 mg IVPUSH Q4H PRN PRN Reason: Nausea Sodium Chloride (Saline Flush) 10 ml FLUSH ASDIRECTED PRN PRN Reason: Keep Vein Open Last Admin: 07/03/16 14:14 Dose: 10 ml Admin: 07/03/16 14:02 Dose: 10 ml Sodium Chloride (Saline Flush) 2.5 ml FLUSH ASDIRECTED PRN PRN Reason: Keep Vein Open Last Admin: 07/03/16 14:02 Dose: 2.5 ml Sodium Chloride (Saline Flush) 10 ml FLUSH ASDIRECTED PRN PRN Reason: Keep Vein Open Sodium Chloride (Saline Flush) 2.5 ml FLUSH ASDIRECTED PRN PRN Reason: Keep Vein Open Last Admin: 07/03/16 14:14 Dose: 2.5 ml - Assessment Assessment (Free Text/Narrative):: resolved gib; ok to feed pt and dc home on prilosec 20 mg po qday X 1 mo; fu w me 1 - 2 wks; tks for the consult - Plan Plan (Free Text/Narrative):: resolved gib; ok to feed pt and dc home on prilosec 20 mg po qday X 1 mo; fu w me 1 - 2 wks; tks for the consult
--- NOTE | 2016-07-06 13:12 | PCM.POSTAN ---
POST ANESTHESIA ASSESSMENT - MENTAL STATUS Mental Status: alert, oriented - RESPIRATORY Respiratory Status: respiratory rate WNL, airway patent, O2 saturation stable - CARDIOVASCULAR CV Status: pulse rate WNL, blood pressure stable - GASTROINTESTINAL GI Status: no symptoms - PAIN Pain Score: 0 - POST OP HYDRATION Hydration Status: adequate & stable
--- NOTE | 2016-07-06 14:06 | OR ---
SURGEON: Sylvester Stoll MD DATE OF PROCEDURE: 07/06/2016 PREOPERATIVE DIAGNOSIS: GI bleeding. POSTOPERATIVE DIAGNOSIS: Resolved GI bleeding. PROCEDURE PERFORMED: EGD, no biopsy. Colonoscopy, no biopsy. PROCEDURE IN DETAIL: EGD: The patient was taken to procedure room, put in left decubitus position, left side down and right side up, and the patient was then given mild general sedation, and a bite block was then put in the mouth and a well-lubricated EGD scope was then gently inserted through the oropharynx, down the esophagus to the GE junction and then passed the GE junction into the stomach and examination of the stomach wall lining and then all the way through the antrum and the pylorus was cannulated and all the way into the duodenum and back in the stomach. Retroflexed look at the fundus of stomach, and then sucked out the air while the scope pulling out. Colonoscopy: The patient was taken to the endoscopy room. A time out was called, patient identified, and procedure identified. Diprivan was then administrated. Patient went from awake to sleep, hearing doctor talking or door closing is normal. Perineum inspection and digital examination were then performed. A well-lubricated colonoscope was gently inserted through the rectum, advanced past the rectosigmoid junction, the descending colon, splenic flexure, transverse colon, hepatic flexure, ascending colon, arrived to the cecum. Cecum was identified as dictated in the finding. Then the scope was carefully withdrawn while attention was paid to the mucosal surface for any abnormality. Air will be sucked out during the scope withdrawal. At the rectum, retroflexed to examine any rectal diseases, fistula or hemorrhoids. Patient tolerated procedure well. There were no intraoperative complications, and Dr. Stoll was present throughout the whole procedure. FINDINGS: EGD finding: The patient is easily sedated with [employer] and Diprivan. The patient is soundly snoring and oropharynx and proximal esophagus are grossly normal in appearance and proximal esophagus is free of disease and no blood, varicosity, inflammation, stricture observed and GE junction at 40 shows mild salmon color change consistent with acid reflux. No blood, no ulcer observed. Into the stomach, has a small amount of water, no bile, no food particle, and rugae is normal in appearance. There is no blood, old blood, dark blood, or blood clot, none of those. Careful examination of lining failed to observe any ulcer. Antrum is mildly inflamed and again, there is no ulcer or blood observed. Duodenum is grossly normal in appearance and scope then retrieved back to the stomach. Retroflexed look at the fundus of stomach, and there is hiatal hernia and also small polyp in the fundus like 2 to 3 mm. Again, the whole area did not observe any ulcer, blood, old blood, or new blood, none of those. The scope was then retrieved while air sucking out. Colonoscopy finding: The patient is easily sedated with [employer] and Diprivan. The patient is soundly snoring. Bowel prep is pretty good with only small amount of liquid stool. No semi-formed stool. Colon is rather redundant at the sigmoid requiring maneuver of the patient in order to get to the cecum. Cecum is indicated by ileocecal fold, one-to-one indentation, and appendiceal orifice. Light immittance is not observed. Because of the bowel prep, we have to use quite a lot of irrigation, so this is a compromised study. The bowel prep was good but still there is some opaque liquid stool coating the mucosa and a lot of bubbles and so required significant irrigation. The patient does not have new blood, or blood, or dark blood. There is no blood observed during the whole procedure and of course, there is no ulcer observed. The patient has very significant diverticulosis on the left colon. No signs or symptoms of diverticulitis. No polyp, mass, growth, inflammation, stricture, AV malformation observed. The patient has moderate internal hemorrhoid. The patient would benefit from repeat colonoscopy 10 years from today or if clinically indicated otherwise. Again, the whole study failed to observe any dark stool or black stool or blood or ulcer. ADDENDUM: The patient probably would be able to go home on Prilosec 20 mg p.o. daily for one month and have a followup appointment with me in 1 to 2 weeks from today. As always, thank you for the kind referral and involving in the care of this nice gentleman. LYNNE / MANPREET /[id number]
--- NOTE | 2016-07-06 14:26 | PCM48HPAN ---
Post Anesthesia Note - EVALUATION WITHIN 48HRS OF ANESTHETIC Vital Signs in Normal Range: Yes Patient Participated in Evaluation: Yes Respiratory Function Stable: Yes Airway Patent: Yes Cardiovascular Function Stable: Yes Hydration Status Stable: Yes Pain Control Satisfactory: Yes Nausea and Vomiting Control Satisfactory: Yes Mental Status Recovered: Yes
--- NOTE | 2016-07-06 15:17 | PCM.DCSUM1 ---
Discharge Summary - Hospital Course Brief History: This 65 year old male with pmh of hypertenison and BPH presented to the ED 07/03/2016 with several day history of dizziness and generalized weakness. He reports that last night he had difficulty getting up after sitting on the toliet. He reports a four day history of dark stools but denies any diarrhea, nausea, or abdominal pain. He had been taking 1600mg of ibuprofen a day for his shoulder and hip arthritis. He denies any cough, fevers , or chills. Dark stool was noted in the ED which was heme positive. Hgb noted to be 3.7. He was admitted for GI bleed and anemia to ICU. - Discharge Data Discharge Date: 07/06/16 Discharge Disposition: Home, Self-Care 01 Condition: Good - Patient Summary/Data Operative Procedure(s) Performed: egd and colonoscopy - Patient Instructions Diet: Regular Diet as Tolerated Activity: As Tolerated Other/Special Instructions: No NSAIDs: Ibuprofen, Aleve, Advil, Motrin - Discharge Plan Prescriptions/Med Rec: Omeprazole 20 mg PO ACBREAKFAST #30 cap.cr Home Medications: Home Meds Terazosin HCl [Terazosin] 5 mg PO BEDTIME 08/23/14 [History] Losartan [Cozaar] 25 mg PO DAILY 07/03/16 [History] Unknown Antidepressant 1 tab PO DAILY 07/03/16 [History] Omeprazole 20 mg PO ACBREAKFAST #30 cap.cr 07/06/16 [Rx] Patient Handouts: Esophagogastroduodenoscopy, Colonoscopy, Care After, Easy-to- Read, Gastrointestinal Bleeding, [id number], Omeprazole tablets (OTC) Referrals: [facility] [Outside] Sylvester Stoll MD [Physician] - 07/14/16 9:30 am Cesar Montejo MD [Physician] - 07/13/16 3:15 pm () - Discharge Summary/Plan Comment DC Time >30 min.: No Discharge Summary/Plan Comment: Discharge diagnoses: GI bleed secondary to NSAID use HTN BPH Lauri was admitted to ICU and transfused a total of 7 units of PRBCs. Hgb has remained stable at 9.8. He denies any further abdominal pain. Today 07/06 Dr. Stoll took patient for EGD/colonoscopy, per verbal report, there was NO noted new or old blood. No ulcers noted. Colonoscopy noted diverticulosis otherwise no polyp mass or inflammation. He recommended Omeprazole 20 mg daily x 1 month and follow up with him in 1-2 weeks. Patient is tolerating diet and doing well. He is ready for discharge home with his . He was educated to not take any further NSAIDs which he verbalized understanding and at bedside agrees. He is to follow up with PCP in [address] Stoll as well. He was updated on EGD/ colonoscopy report. He is to return to the clinic or ED if concerns should arise. - Patient Data Vitals - Most Recent: Last Vital Signs Temp 97.8 F 07/06/16 11:20 Pulse 84 07/06/16 12:43 Resp 12 07/06/16 12:43 BP 134/81 07/06/16 12:43 Pulse Ox 95 07/06/16 12:43 Weight - Most Recent: 99.5 kg I&O - Last 24 hours: Intake & Output 07/06/16 07/06/16 07/06/16 06:59 14:59 22:59 Intake Total 2100 300 Output Total 600 Balance 1500 300 Lab Results - Last 24 hrs: Laboratory Results - last 24 hr 07/05/16 07/06/16 07/06/16 Range/Units 17:30 04:44 04:44 WBC 11.50 H (4.0-11.0) K/uL RBC 3.35 L (4.50-5.90) M/uL Hgb 9.9 L 9.8 L (13.0-17.0) g/dL Hct 29.3 L (38.0-50.0) % MCV 87.5 (80.0-98.0) fL MCH 29.3 (27.0-32.0) pg MCHC 33.4 (31.0-37.0) g/dL RDW Std Deviation 50.4 (28.0-62.0) fl RDW Coeff of Emily 17 H (11.0-15.0) % Plt Count 153 (150-400) K/uL MPV 8.60 (7.40-12.00) fL Add Manual Diff YES Neutrophils % (Manual) 74 (48.0-80.0) % Band Neutrophils % 4 % Lymphocytes % (Manual) 10 L (16.0-40.0) % Monocytes % (Manual) 5 (0.0-15.0) % Eosinophils % (Manual) 5 (0.0-7.0) % Basophils % (Manual) 2 H (0.0-1.5) % Nucleated RBC % 0.0 /100WBC Absolute Seg Neuts 8.5 Band Neutrophils # 0.5 Lymphocytes # (Manual) 1.2 Monocytes # (Manual) 0.6 Eosinophils # (Manual) 0.6 Basophils # (Manual) 0 Nucleated RBCs # 0 K/uL Sodium 140 (136-146) mmol/L Potassium 3.6 (3.5-5.1) mmol/L Chloride 110 (98-110) mmol/L Carbon Dioxide 24 (21-31) mmol/L BUN 9 (6.0-23.0) mg/dL Creatinine 0.8 (0.6-1.5) mg/dL Est Cr Clr Drug Dosing 108.50 mL/min Estimated GFR (MDRD) > 60.0 ml/min Glucose 95 (60-110) mg/dL Calcium 7.2 L (8.8-10.8) mg/dL VEE Results - Last 24 hrs: Microbiology 07/03/16 16:52 Aerobic Blood Culture - Preliminary Blood - Venous - Lab Draw NO GROWTH AFTER 2 DAYS Anaerobic Blood Culture - Preliminary NO GROWTH AFTER 2 DAYS 07/03/16 16:46 Aerobic Blood Culture - Preliminary Blood - Venous NO GROWTH AFTER 2 DAYS Anaerobic Blood Culture - Preliminary NO GROWTH AFTER 2 DAYS Med Orders - Current: Current Medications Omeprazole (Omeprazole) 20 mg PO ACBREAKFAST DILLAN Ondansetron HCl (Zofran) 4 mg IVPUSH Q4H PRN PRN Reason: Nausea Sodium Chloride (Saline Flush) 10 ml FLUSH ASDIRECTED PRN PRN Reason: Keep Vein Open Last Admin: 07/03/16 14:14 Dose: 10 ml Sodium Chloride (Saline Flush) 2.5 ml FLUSH ASDIRECTED PRN PRN Reason: Keep Vein Open Last Admin: 07/03/16 14:02 Dose: 2.5 ml Sodium Chloride (Saline Flush) 10 ml FLUSH ASDIRECTED PRN PRN Reason: Keep Vein Open Sodium Chloride (Saline Flush) 2.5 ml FLUSH ASDIRECTED PRN PRN Reason: Keep Vein Open Last Admin: 07/03/16 14:14 Dose: 2.5 ml Discontinued Medications Bisacodyl (Dulcolax) 20 mg PO ONETIME ONE Stop: 07/05/16 10:33 Last Admin: 07/05/16 10:35 Dose: Not Given Bisacodyl (Dulcolax) 20 mg PO ONETIME ONE Stop: 07/05/16 13:01 Last Admin: 07/05/16 13:02 Dose: 20 mg Calcium Gluconate (Calcium Gluconate) 1 gm IV ONETIME ONE Stop: 07/04/16 10:16 Last Admin: 07/04/16 10:45 Dose: 1 gm Calcium Gluconate (Calcium Gluconate) 1 gm IV ONETIME ONE Stop: 07/05/16 00:36 Last Admin: 07/05/16 00:54 Dose: 1 gm Ephedrine Sulfate (Ephedrine Sulfate) Confirm Administered Dose 50 mg .ROUTE .STK-MED ONE Stop: 07/06/16 11:51 Fentanyl (Sublimaze) Confirm Administered Dose 100 mcg .ROUTE .STK-MED ONE Stop: 07/06/16 10:51 Pantoprazole Sodium 80 mg/ (Sodium Chloride) 100 mls @ 10 mls/hr IV .Continuous DILLAN Pantoprazole Sodium 80 mg/ (Sodium Chloride) 100 mls @ 10 mls/hr IV Q10H DILLAN Last Admin: 07/06/16 13:12 Dose: Not Given Sodium Chloride (Normal Saline) 1,000 mls @ 999 mls/hr IV .Bolus ONE Stop: 07/03/16 15:04 Last Admin: 07/03/16 14:13 Dose: 999 mls/hr Octreotide Acetate 500 mcg/ (Sodium Chloride) 500 mls @ 50 mls/hr IV Q10H DILLAN PRN Reason: 50 MCG/HR Last Admin: 07/04/16 03:12 Dose: Not Given Sodium Chloride (Normal Saline) 1,000 mls @ 75 mls/hr IV ASDIRECTED DILLAN Last Infusion: 07/04/16 01:50 Dose: 75 mls/hr Magnesium Sulfate 2 gm/ Premix 50 mls @ 50 mls/hr IV ONETIME ONE Stop: 07/05/16 00:51 Last Admin: 07/05/16 00:11 Dose: 50 mls/hr Potassium Phosphate 20 mmole/ (Sodium Chloride) 506.6667 mls @ 126.667 mls/hr IV NOW ONE Stop: 07/05/16 04:14 Last Admin: 07/05/16 00:52 Dose: 126.667 mls/hr Potassium Chloride/Sodium Chloride (Normal Saline With 20 Meq Kcl) 500 mls @ 250 mls/hr IV ONETIME ONE Stop: 07/05/16 02:54 Last Admin: 07/05/16 01:22 Dose: 250 mls/hr Lactated Ringer's (Ringers, Lactated) 1,000 mls @ 125 mls/hr IV ASDIRECTED [facility] Last Admin: 07/06/16 05:00 Dose: 125 mls/hr Lidocaine (Xylocaine-Mpf 2%) Confirm Administered Dose 10 ml .ROUTE .STK-MED ONE Stop: 07/06/16 10:50 Midazolam HCl (Versed 1 Mg/Ml) Confirm Administered Dose 2 mg .ROUTE .STK-MED ONE Stop: 07/06/16 10:51 Pantoprazole Sodium (Protonix Iv) 80 mg IVPUSH .BOLUS ONE Stop: 07/03/16 13:56 Last Admin: 07/03/16 14:00 Dose: 80 mg Polyethylene Glycol (Miralax) 119 gm PO ONETIME ONE Stop: 07/05/16 15:01 Last Admin: 07/05/16 15:02 Dose: 119 gm Polyethylene Glycol (Miralax) 119 gm PO ONETIME ONE Stop: 07/05/16 19:01 Last Admin: 07/05/16 18:29 Dose: 119 gm Potassium Phosphate (Potassium Phosphates) 20 mmole IV ONETIME ONE Stop: 07/05/16 00:01 Propofol (Diprivan 20 Ml) Confirm Administered Dose 400 mg .ROUTE .STK-MED ONE Stop: 07/06/16 10:51 Propofol (Diprivan 20 Ml) Confirm Administered Dose 200 mg .ROUTE .STK-MED ONE Stop: 07/06/16 12:07 *Q Meaningful Use (DIS) - VTE *Q VTE Criteria *Q: - Stroke *Q Stroke Criteria *Q: - AMI *Q AMI Criteria *Q:
[2016-07-06 15:57] VITALS: BP 134/73
[2016-07-07] MEDS ORDERED: Omeprazole 20 MG Cap.CR PO SCH (07:30)
== END 2016-07-06 16:25 | disposition home or self-care (01) | DRG 253 ==
LOC: MW.ED 13:16 → MW.ICU 14:29 → MW.MS 07-05 11:25
PROVIDERS: ADMIT Internal Medicine; ATTEND Internal Medicine
PROC: 30253N1 (ICD-10-PCS; 2016-07-03)
PROC: 0DJ08ZZ Inspection of Upper Intestinal Tract, Via Natural or Artificial Opening Endoscopic (ICD-10-PCS; principal; 2016-07-06)
PROC: 0DJD8ZZ Inspection of Lower Intestinal Tract, Via Natural or Artificial Opening Endoscopic (ICD-10-PCS; 2016-07-06)
DX: K92.2 Gastrointestinal hemorrhage, unspecified (principal); D62 Acute posthemorrhagic anemia; I10 Essential (primary) hypertension; N40.0 Benign prostatic hyperplasia without lower urinary tract symptoms; M19.019 Primary osteoarthritis, unspecified shoulder; M16.10 Unilateral primary osteoarthritis, unspecified hip; Z87.442 Personal history of urinary calculi; Z87.891 Personal history of nicotine dependence
CPT/HCPCS: 00740; 36415; 36430; 71010; 71010-26; 80048; 80053; 81001; 82310; 83605; 83690; 83735; 84100; 84484; 85014; 85018; 85025; 85027; 85048; 85610; 85730; 86850; 86900; 86901; 86920; 86921; 86922; 87040; 93005; 96365; 96376; 99285; 99285-25; A9270-GY; C9113; J0610; J2250; J2704; J3010; J3475; J3480; J7030; J7040; J7120; P9016